=== PATIENT | male | born 1980 | race African-American/Black ===

== ENCOUNTER 2020-02-05 19:37 | Emergency (ER) | payer SELFPAY ==
[2020-02-05 20:42] LABS: Absolute Lymphocytes (CBC) 2.9 K/uL (0.7-4.9); Basophils % 1.2 % (0-1.3); Hematocrit 48.7 % (39.6-49.0); Lymphocytes % 36.2 % (15.3-44.8); RBC Red Blood Cell Count 5.81 M/uL (4.33-5.43)
[2020-02-05 21:01] LABS: ALT/SGPT 55 U/L (12-78); AST/SGOT 30 U/L (15-37); Albumin 3.8 g/dL (3.4-5.0); Alkaline Phosphatase 82 U/L (45-117); BUN Blood Urea Nitrogen 13 mg/dL (7-18); Bicarbonate 29 mmol/L (21-32); Bilirubin Direct < 0.1 mg/dL (0-0.2); Bilirubin Total 0.3 mg/dL (0.2-1.0); Glucose Level 89 mg/dL (74-106); Lipase 79 U/L (73-393); Potassium 4.2 mmol/L (3.5-5.1); Sodium Level 142 mmol/L (136-145)
--- NOTE | 2020-02-05 23:02 | ER ---
Nurse's Notes [facility] Name: Carlos Johnston Age: 39 yrs Sex: Male : 1980 Arrival Date: 02/05/2020 Time: 19:39 Bed 17 Private MD: Diagnosis: Hematochezia Presentation: 02/04 20:38 Chief complaint: Patient states: Pt reports he has been having rectal bleeding on and ea off for a week, tonight he noticed there was more blood in his stool. Coronavirus screen: The patient has NOT traveled to a country currently being monitored by the [facility] within the last 14 days. Ebola Screen: No symptoms or risks identified at this time. Initial Sepsis Screen: Does the patient meet any 2 criteria? No. Patient's initial sepsis screen is negative. Does the patient have a suspected source of infection? No. Patient's initial sepsis screen is negative. Risk Assessment: Do you want to hurt yourself or someone else? Patient reports no desire to harm self or others. 20:38 Acuity: RHONDA 3 ea 20:38 Method Of Arrival: Ambulatory ea Historical: - Allergies: 20:41 No Known Allergies; ea - Home Meds: 20:41 None [Active]; ea - Immunization history:: Adult Immunizations up to date. - Social history:: Smoking status: Patient denies any tobacco usage or history of. Screenin:37 Abuse screen: Denies threats or abuse. Nutritional screening: No deficits noted. ea Tuberculosis screening: No symptoms or risk factors identified. Fall Risk None identified. Assessment: 20:41 General: Appears in no apparent distress. Behavior is calm, cooperative, appropriate ea for age. Pain: Denies pain. Neuro: Level of Consciousness is awake, alert, obeys commands, Oriented to person, place, time, situation. Respiratory: Airway is patent Respiratory effort is even, unlabored, Respiratory pattern is regular, symmetrical. GI: Abdomen is non-distended. Derm: Skin is pink, warm \T\ dry. 21:00 Reassessment: Patient and/or family updated on plan of care and expected duration. Pain ea level reassessed. Patient is alert, oriented x 3, equal unlabored respirations, skin warm/dry/pink. 22:17 Reassessment: Patient and/or family updated on plan of care and expected duration. Pain ea level reassessed. Patient is alert, oriented x 3, equal unlabored respirations, skin warm/dry/pink. 23:17 Reassessment: Patient and/or family updated on plan of care and expected duration. Pain ea level reassessed. Patient is alert, oriented x 3, equal unlabored respirations, skin warm/dry/pink. Discharge instruction given to patient, verbalized the understanding of instruction. Pt left ED ambulatory accompanied by family. Vital Signs: 19:55 BP 144 / 98 LA Sitting (auto/reg); Pulse 70; Resp 18 S; Temp 98.0; Pulse Ox 100% on R/A;mb4 20:38 Weight 86.18 kg; Height 5 ft. 5 in. (165.10 cm); ea 21:32 BP 137 / 94 LA Sitting (auto/reg); Pulse 72; mb4 20:38 Body Mass Index 31.62 (86.18 kg, 165.10 cm) ea ED Course: 19:39 Patient arrived in ED. cl3 19:52 Lenin Diop NP is PHCP. pm1 19:52 Devin Fuentes MD is Attending Physician. pm1 19:55 Safety checks:. Patient has correct armband on for positive identification. Bed in low mb4 position. Call light in reach. Pulse ox on. NIBP on. 20:15 Peg Cochran, RN is Primary Nurse. ea 20:39 Triage completed. ea 20:39 Arm band placed on right wrist. Patient placed in an exam room, on a stretcher, on ea pulse oximetry. 20:55 Radiology exam delayed due to lab results not completed at this time. (BUN/Creatinine). bq 22:06 CT Abd/Pelvis - IV Contrast Only In Process Unspecified. EDMS 22:08 IV is patent, with good blood return, Flushed. 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 mb4 23:01 Elvin Cunha MD is Referral Physician. pm1 23:20 IV discontinued, intact, bleeding controlled, No redness/swelling at site. Pressure ea dressing applied. Administered Medications: No medications were administered Outcome: 23:01 Discharge ordered by . pm1 23:19 Discharged to home ambulatory. ea 23:19 Condition: stable 23:19 Discharge instructions given to patient, Instructed on discharge instructions, follow up and referral plans. Demonstrated understanding of instructions, follow-up care. 23:22 Patient left the ED. ea Signatures: Dispatcher [employer] EDCorie Malloy Patrick, NP CHECKER LOADER pm1 Peg Cochran RN RN Juliann Meredith mb4 Maria A Junior cl3
--- NOTE | 2020-02-05 23:02 | EDPHYS ---
Physician Documentation [facility] Name: Carlos Johnston Age: 39 yrs Sex: Male : 1980 Arrival Date: 02/05/2020 Time: 19:39 Bed 17 Private MD: ED Physician Devin Fuentes HPI: 02/04 21:05 This 39 yrs old Black Male presents to ER via Ambulatory with complaints of Bloody pm1 Stools. 21:05 The patient presents to the emergency department with rectal bleeding, a small amount, pm1 bright red blood with bowel movement, on toilet paper. Onset: The symptoms/episode began/occurred 1 week(s) ago, on and off. Abdominal pain: none is appreciated. Modifying factors: The symptoms are alleviated by nothing, the symptoms are aggravated by bowel movement. Associated signs and symptoms: Pertinent negatives: chest pain, constipation, diarrhea, dizziness at rest, dizziness when standing, shortness of breath, vomiting. Severity of symptoms: in the emergency department the symptoms are worse Pain is currently a 0 / 10. The patient has not experienced similar symptoms in the past. Historical: - Allergies: 20:41 No Known Allergies; ea - Home Meds: 20:41 None [Active]; ea - Immunization history:: Adult Immunizations up to date. - Social history:: Smoking status: Patient denies any tobacco usage or history of. ROS: 21:05 Constitutional: Negative for fever, chills, and weight loss, Cardiovascular: Negative pm1 for chest pain, palpitations, and edema, Respiratory: Negative for shortness of breath, cough, wheezing, and pleuritic chest pain. 21:05 Back: Negative for injury and pain, MS/Extremity: Negative for injury and deformity, Skin: Negative for injury, rash, and discoloration, Neuro: Negative for headache, weakness, numbness, tingling, and seizure. 21:05 Abdomen/GI: Positive for rectal bleeding, Negative for abdominal pain, diarrhea, constipation. Exam: 21:05 Constitutional: This is a well developed, well nourished patient who is awake, alert, pm1 and in no acute distress. Head/Face: Normocephalic, atraumatic. Chest/axilla: Normal chest wall appearance and motion. Nontender with no deformity. No lesions are appreciated. Cardiovascular: Regular rate and rhythm with a normal S1 and S2. No gallops, murmurs, or rubs. Normal PMI, no JVD. No pulse deficits. Respiratory: Lungs have equal breath sounds bilaterally, clear to auscultation and percussion. No rales, rhonchi or wheezes noted. No increased work of breathing, no retractions or nasal flaring. Abdomen/GI: Soft, non-tender, with normal bowel sounds. No distension or tympany. No guarding or rebound. No evidence of tenderness throughout. Back: No spinal tenderness. No costovertebral tenderness. Full range of motion. Skin: Warm, dry with normal turgor. Normal color with no rashes, no lesions, and no evidence of cellulitis. MS/ Extremity: Pulses equal, no cyanosis. Neurovascular intact. Full, normal range of motion. 21:05 Neuro: Orientation: is normal, Motor: is normal, moves all fours. 22:55 Abdomen/GI: Inspection: abdomen appears normal, Bowel sounds: normal, Rectal exam: is pm1 unremarkable, rectal tone normal, Stool: brown, guaiac positive, trace, mass, is not appreciated, swelling, is not appreciated, [facility] tech. Vital Signs: 19:55 BP 144 / 98 LA Sitting (auto/reg); Pulse 70; Resp 18 S; Temp 98.0; Pulse Ox 100% on R/A;mb4 20:38 Weight 86.18 kg; Height 5 ft. 5 in. (165.10 cm); ea 21:32 BP 137 / 94 LA Sitting (auto/reg); Pulse 72; mb4 20:38 Body Mass Index 31.62 (86.18 kg, 165.10 cm) ea MDM: 20:01 Patient medically screened. pm1 22:55 Data reviewed: vital signs. Data interpreted: Pulse oximetry: on room air is 100 %. pm1 Interpretation: normal. Counseling: I had a detailed discussion with the patient and/or guardian regarding: the historical points, exam findings, and any diagnostic results supporting the discharge/admit diagnosis, lab results, radiology results, the need for outpatient follow up, to return to the emergency department if symptoms worsen or persist or if there are any questions or concerns that arise at home. 23:02 ED course: Discussed need for follow up with GI and colonscopy. pm1 02/04 20:09 Order name: Basic Metabolic Panel; Complete Time: 21:05 pm1 02/04 20:09 Order name: CBC with Diff; Complete Time: 20:52 pm1 02/04 20:09 Order name: Creatinine for Radiology; Complete Time: 21:05 pm1 02/04 20:09 Order name: Hepatic Function; Complete Time: 21:05 pm1 02/04 20:09 Order name: Lipase; Complete Time: 21:05 pm1 02/04 20:09 Order name: CT Abd/Pelvis - IV Contrast Only pm1 02/04 20:09 Order name: IV Saline Lock; Complete Time: 20:43 pm1 02/04 20:09 Order name: Labs collected and sent; Complete Time: 20:43 pm1 Administered Medications: No medications were administered Disposition: 02/05 04:27 Co-signature as Attending Physician, Devin Fuentes MD I agree with the assessment and tw4 plan of care. Disposition: 02/05/20 23:01 Discharged to Home. Impression: Hematochezia. - Condition is Stable. - Discharge Instructions: Rectal Bleeding. - Medication Reconciliation Form, Thank You Letter, Antibiotic Education, Prescription Opioid Use, Work release form, Family Work Release form. - Follow up: Emergency Department; When: As needed; Reason: Worsening of condition. Follow up: Private Physician; When: 2 - 3 days; Reason: Recheck today's complaints, Continuance of care, Re-evaluation by your physician. Follow up: Elvin Cunha MD; When: 2 - 3 days; Reason: Recheck today's complaints, Continuance of care, Re-evaluation by your physician. - Problem is new. - Symptoms have improved. Signatures: Dispatcher [employer] EDMS Lenin Diop, STEPHEN PROCTOLOGIST pm1 Peg Cochran, Devin Gan RN, ea, MD MD tw4 Corrections: (The following items were deleted from the chart) 02/04 23:01 23:02/05/2020 23:01 Discharged to Home. Impression: Hematochezia. Condition is pm1 Stable. Forms are Medication Reconciliation Form, Thank You Letter, Antibiotic Education, Prescription Opioid Use. Follow up: Emergency Department; When: As needed; Reason: Worsening of condition. Follow up: Private Physician; When: 2 - 3 days; Reason: Recheck today's complaints, Continuance of care, Re-evaluation by your physician. Problem is new. Symptoms have improved. pm1 23:22 23:01 02/05/2020 23:01 Discharged to Home. Impression: Hematochezia. Condition is ea Stable. Discharge Instructions: Rectal Bleeding. Forms are Medication Reconciliation Form, Thank You Letter, Antibiotic Education, Prescription Opioid Use. Follow up: Emergency Department; When: As needed; Reason: Worsening of condition. Follow up: Private Physician; When: 2 - 3 days; Reason: Recheck today's complaints, Continuance of care, Re-evaluation by your physician. Follow up: Elvin Cunha; When: 2 - 3 days; Reason: Recheck today's complaints, Continuance of care, Re-evaluation by your physician. Problem is new. Symptoms have improved. pm1
[2020-02-05 23:39] VITALS: TEMP 98; O2SAT 100
[2020-02-05 23:40] VITALS: BP 137/94
--- NOTE | 2020-02-06 09:53 | RAD REPORT ---
CT ABDOMEN PELVIS WITH IV CONTRAST COMPARISON: None CLINICAL HISTORY: GI bleed TECHNIQUE: Multiple helical axial images were obtained through the abdomen and pelvis using intravenous contrast. Coronal and sagittal reformatted images were obtained. All CT scans at this facility use dose modulation, iterative reconstruction, and/or weight-based dosing when appropriate to reduce radiation dose to as low as reasonably achievable. FINDINGS: Lung bases: [Appear unremarkable]. Liver: [A 9 mm hypodensity in the right hepatic lobe is present too small to characterize.] Gallbladder/biliary: [Appears unremarkable] Pancreas: [Unremarkable. No evidence of ductal enlargement.] Spleen: Appears unremarkable. No splenomegaly. Adrenals: Unremarkable. Kidneys and ureters: [No evidence of hydronephrosis. Normal enhancement.] Bladder: Unremarkable. Pelvic organs: Unremarkable. Bowel: [No evidence of bowel obstruction. No bowel wall thickening.] Appendix appears unremarkable. Vasculature: Unremarkable. Peritoneum: No free air. No significant free fluid. Lymph nodes: Unremarkable. Soft tissues: Unremarkable. Bones: Unremarkable. IMPRESSION: No evidence for an acute process within the abdomen or pelvis. Electronically signed by: Hermelindo Sanchez MD 02/05/2020 10:25 PM CDT Due to temporary technical issues with the PAC/Fluency reporting system, reports are being signed by the in house radiologist as a courtesy to ensure prompt reporting. The interpreting radiologist is fully responsible for the content of the report. RAE
== END 2020-02-05 23:22 | disposition home or self-care (01) ==
LOC: ER 19:37
DX: K92.1 Melena (principal)
CPT/HCPCS: 36415; 74177; 80048; 80076; 83690; 85025; 99283; Q9967

== ENCOUNTER 2020-03-17 08:09 | Emergency (ER) | payer SELFPAY ==
--- NOTE | 2020-03-17 08:23 | ER ---
Nurse's Notes [facility] Name: Carlos Johnston Age: 39 yrs Sex: Male : 1980 Arrival Date: 03/17/2020 Time: 08:11 Bed 5 Private MD: Diagnosis: Cough Presentation: 03/17 08:18 Chief complaint: Productive cough with clear sputum x 2 months. Denies pain/SOB/N/V/D. hb Coronavirus screen: Patient reports a cough. Patient denies shortness of breath or difficulty breathing. Patient denies measured and/or subjective temperature greater than 100.4F prior to today's visit. Patient denies travel on a cruise ship or to a country the [facility] currently lists as an affected area. Patient denies contact with known and/or suspected case of COVID-19. mask on pt, pot instructed to keep mask on. Ebola Screen: No symptoms or risks identified at this time. Initial Sepsis Screen: Does the patient meet any 2 criteria? No. Patient's initial sepsis screen is negative. Does the patient have a suspected source of infection? No. Patient's initial sepsis screen is negative. Risk Assessment: Do you want to hurt yourself or someone else? Patient reports no desire to harm self or others. Onset of symptoms was March 17, 2020. 08:18 Method Of Arrival: Ambulatory hb 08:18 Acuity: RHONDA 4 hb Historical: - Allergies: 08:22 No Known Allergies; hb - Home Meds: 08:22 None [Active]; hb - PMHx: 08:22 None; hb - PSHx: 08:22 None; hb - Immunization history:: Adult Immunizations up to date. - Social history:: Smoking status: Patient/guardian denies using tobacco, Stopped _ months ago 6. Screenin:27 Abuse screen: Denies threats or abuse. Nutritional screening: No deficits noted. em Tuberculosis screening: No symptoms or risk factors identified. Fall Risk None identified. Assessment: 08:28 General: Appears in no apparent distress. comfortable, Behavior is calm, cooperative, em appropriate for age, Denies fever. Pain: Denies pain. Neuro: Level of Consciousness is awake, alert, obeys commands, Oriented to person, place, time, situation, Appropriate for age. Cardiovascular: Capillary refill < 3 seconds Patient's skin is warm and dry. Respiratory: Reports cough that is productive, Airway is patent Respiratory effort is even, unlabored, Respiratory pattern is regular, symmetrical, Breath sounds are clear bilaterally. Onset: The symptoms/episode began/occurred 2 months ago, Denies shortness of breath labored breathing. Derm: Skin is intact, is healthy with good turgor, Skin is pink, warm \T\ dry. Musculoskeletal: Capillary refill < 3 seconds, Range of motion: intact in all extremities. Vital Signs: 08:18 BP 125 / 87; Pulse 78; Resp 16; Temp 98.4(O); Pulse Ox 100% ; Weight 87.09 kg; Height 5 hb ft. 10 in. (177.80 cm); Pain 0/10; 08:18 Body Mass Index 27.55 (87.09 kg, 177.80 cm) hb ED Course: 08:11 Patient arrived in ED. am2 08:12 Ortiz Saldaña FNP-C is [facility]. la1 08:12 Jose Maria Rodríguez MD is Attending Physician. la1 08:19 Gt [place], RN is Primary Nurse. em 08:21 Triage completed. hb 08:22 Arm band placed on. hb 08:27 Patient has correct armband on for positive identification. Bed in low position. Call em light in reach. 08:27 No provider procedures requiring assistance completed. Patient did not have IV access em during this emergency room visit. Administered Medications: No medications were administered Outcome: 08:23 Discharge ordered by . la1 08:29 Discharged to home ambulatory. em 08:29 Condition: good 08:29 Discharge instructions given to patient, Instructed on discharge instructions, follow up and referral plans. medication usage, Demonstrated understanding of instructions, follow-up care, medications, Prescriptions given X 1. 08:30 Patient left the ED. em Signatures: Gt [place], RN JEN Ortiz Saldaña FNP-C FNP-[facility]1 Ines Man RN RN Jeana Conway am2
--- NOTE | 2020-03-17 08:24 | EDPHYS ---
Physician Documentation [facility] Name: Carlos Johnston Age: 39 yrs Sex: Male : 1980 Arrival Date: 03/17/2020 Time: 08:11 Bed 5 Private MD: ED Physician Jose Maria Rodríguez HPI: 03/17 08:24 This 39 yrs old Black Male presents to ER via Ambulatory with complaints of Cough. la1 08:24 The patient or guardian reports cough, that is intermittent, described as mild. Onset: la1 The symptoms/episode began/occurred 2 month(s) ago. Severity of symptoms: At their worst the symptoms were very mild. Associated signs and symptoms: The patient has no apparent associated signs or symptoms, Pertinent negatives: chest pain, diarrhea, fever, nausea, sore throat, vomiting. The patient has not experienced similar symptoms in the past. Historical: - Allergies: 08:22 No Known Allergies; hb - Home Meds: 08:22 None [Active]; hb - PMHx: 08:22 None; hb - PSHx: 08:22 None; hb - Immunization history:: Adult Immunizations up to date. - Social history:: Smoking status: Patient/guardian denies using tobacco, Stopped _ months ago 6. ROS: 08:25 Constitutional: Negative for fever, chills, and weight loss, Cardiovascular: Negative la1 for chest pain, palpitations, and edema, Respiratory: + for cough 08:25 Abdomen/GI: Negative for abdominal pain, nausea, vomiting, diarrhea, and constipation, la1 Back: Negative for injury and pain, MS/Extremity: Negative for injury and deformity, Neuro: Negative for headache, weakness, numbness, tingling, and seizure. Exam: 08:26 Constitutional: This is a well developed, well nourished patient who is awake, alert, la1 and in no acute distress. Head/Face: Normocephalic, atraumatic. Chest/axilla: Normal chest wall motion. Cardiovascular: Regular rate and rhythm with a normal S1 and S2. Respiratory: Lungs have equal breath sounds bilaterally, clear to auscultation No rales, rhonchi or wheezes noted. No increased work of breathing Vital Signs: 08:18 BP 125 / 87; Pulse 78; Resp 16; Temp 98.4(O); Pulse Ox 100% ; Weight 87.09 kg; Height 5 hb ft. 10 in. (177.80 cm); Pain 0/10; 08:18 Body Mass Index 27.55 (87.09 kg, 177.80 cm) hb MDM: 08:14 Patient medically screened. la1 08:21 Data reviewed: vital signs, nurses notes, and as a result, I will discharge patient. la1 Data interpreted: Pulse oximetry: on room air is 100 %. Interpretation: normal. Counseling: I had a detailed discussion with the patient and/or guardian regarding: the historical points, exam findings, and any diagnostic results supporting the discharge/admit diagnosis, the need for outpatient follow up, a family practitioner, to return to the emergency department if symptoms worsen or persist or if there are any questions or concerns that arise at home. Special discussion: Further emergent ED testing is not indicated at this point in time. I discussed with the patient/guardian in detail the need to arrange with the PCP or specialist further outpatient testing, IF HE WISHES TO BE SCREENED FOR covid. ED course: pt in no resp distress, denies subjective SOB, productive cough with clear sputum for 2 months, denies fever chills or any other sx. 02 sats 100%, breath sounds CTA BARON. Administered Medications: No medications were administered Disposition: 03/17/20 08:23 Discharged to Home. Impression: Cough. - Condition is Stable. - Discharge Instructions: Allergies, Adult, Cough, Adult. - Prescriptions for Tessalon Perles 100 mg Oral Capsule - take 1 capsule by ORAL route every 8 hours As needed; 15 capsule. - Medication Reconciliation Form, Thank You Letter form. - Follow up: Private Physician; When: As needed; Reason: Recheck today's complaints, Re-evaluation by your physician. - Problem is an ongoing problem. - Symptoms are unchanged. - Notes: You can try an over the counter medication such as cristian or zyrtec for allergy control daily. Addendum: 03/19/2020 09:52 Co-signature as Attending Physician, Jose Maria Rodríguez MD I agree with the assessment and c zeng plan of care. Signatures: Jose Maria Rodríguez MD MD cha Munoz, Edgar, RN RN Ortiz Huizar, INTERVENTIONAL RADIOLOGIST-C INTERVENTIONAL RADIOLOGIST-Cla1 Ines Man RN RN Corrections: (The following items were deleted from the chart) 03/17 08:30 08:23 03/17/2020 08:23 Discharged to Home. Impression: Cough. Condition is Stable. em Forms are Medication Reconciliation Form, Thank You Letter, Antibiotic Education, Prescription Opioid Use. Follow up: Private Physician; When: As needed; Reason: Recheck today's complaints, Re-evaluation by your physician. Problem is an ongoing problem. Symptoms are unchanged. la1
[2020-03-17 08:35] VITALS: BP 125/87; TEMP 98.4; O2SAT 100
== END 2020-03-17 08:30 | disposition home or self-care (01) ==
LOC: ER 08:09
DX: R05 Cough (principal)
CPT/HCPCS: 99282

== ENCOUNTER 2020-06-03 15:59 | Inpatient (IN) | payer SELFPAY ==
[2020-06-03] MEDS ORDERED: FAMOTIDINE 20 MG/2 ML VIAL IV ONE ×2 (18:38→22:49)
--- NOTE | 2020-06-03 18:44 | RAD REPORT ---
EXAM DESCRIPTION: Sherif Single View06/03/2020 6:14 pm CLINICAL HISTORY: Chest pain COMPARISON: none FINDINGS: Calcified granuloma right lung. The lungs appear clear of acute infiltrate. The heart is normal size IMPRESSION: No acute abnormalities displayed
[2020-06-03 21:31] LABS: Absolute Lymphocytes (CBC) 2.4 K/uL (0.7-4.9); Hematocrit 54.6 % (39.6-49.0); Lymphocytes % 26.6 % (15.3-44.8); MPV 8.3 fL (7.6-11.3); RBC Red Blood Cell Count 6.49 M/uL (4.33-5.43)
[2020-06-03] MEDS ORDERED: ASPIRIN 81 MG CHEWABLE TABLET ONE (21:31)
[2020-06-03 21:34] LABS: Protime INR 1.04
[2020-06-03 21:51] LABS: Albumin 4.3 g/dL (3.4-5.0); Bilirubin Direct 0.1 mg/dL (0-0.2); Bilirubin Total 0.5 mg/dL (0.2-1.0); Magnesium 2.2 mg/dL (1.8-2.4); Potassium 3.7 mmol/L (3.5-5.1)
[2020-06-03 21:53] LABS: Troponin (Emerg Dept Use Only) 1.25 ng/mL (0.0-0.045)
--- NOTE | 2020-06-03 22:16 | ER ---
Nurse[facility] Name: Carlos Johnston Age: 39 yrs Sex: Male : 1980 Arrival Date: 06/03/2020 Time: 16:01 Bed 18 Private MD: Diagnosis: Non-ST elevation (NSTEMI) myocardial infarction Presentation: 06/03 16:40 Chief complaint: Patient states: Acid reflux started yesterday evening. Burning ca1 sensation on my chest, took some Tums with no relief. Denies cough. Coronavirus screen: Proceed with normal triage. Patient denies a cough. Patient denies shortness of breath or difficulty breathing. Patient denies measured and/or subjective temperature greater than 100.4F prior to today's visit. Patient denies travel on a cruise ship or to a country the [facility] currently lists as an affected area. Patient denies contact with known and/or suspected case of COVID-19. Ebola Screen: Patient negative for fever greater than or equal to 101.5 degrees Fahrenheit, and additional compatible Ebola Virus Disease symptoms Patient denies exposure to infectious person. Patient denies travel to an Ebola-affected area in the 21 days before illness onset. No symptoms or risks identified at this time. Initial Sepsis Screen: Does the patient meet any 2 criteria? No. Patient's initial sepsis screen is negative. Does the patient have a suspected source of infection? No. Patient's initial sepsis screen is negative. Risk Assessment: Do you want to hurt yourself or someone else? Patient reports no desire to harm self or others. Onset of symptoms was June 03, 2020. 16:40 Method Of Arrival: Ambulatory ca1 16:40 Acuity: RHONDA 3 ca1 Triage Assessment: 18:00 Headache History: The patient has had previous headaches and this one is similar to rb1 previous episodes. 18:00 Pain: Pain began last night. rb1 Historical: - Allergies: 16:43 No Known Allergies; ca1 - Home Meds: 16:43 None [Active]; ca1 - PMHx: 16:43 None; ca1 - PSHx: 16:43 None; ca1 - Immunization history:: Adult Immunizations up to date. - Social history:: Smoking status: Patient denies any tobacco usage or history of. Screenin:00 Abuse screen: Denies threats or abuse. Nutritional screening: No deficits noted. rb1 Tuberculosis screening: No symptoms or risk factors identified. Fall Risk None identified. Assessment: 18:00 General: Appears in no apparent distress. comfortable, Behavior is calm, cooperative, rb1 Denies fever. Pain: Complains of pain in mid-sternal area Pain currently is 7 out of 10 on a pain scale. Quality of pain is described as burning. Pain: Aggravated by eating. Neuro: Level of Consciousness is awake, alert, obeys commands, Oriented to person, place, time, situation. Cardiovascular: Capillary refill < 3 seconds. Respiratory: Airway is patent Respiratory effort is even, unlabored, Respiratory pattern is regular, symmetrical. Respiratory: Denies cough, shortness of breath. GI: No signs and/or symptoms were reported involving the gastrointestinal system. : No signs and/or symptoms were reported regarding the genitourinary system. Derm: Skin is dry, Skin is normal, Skin temperature is warm. 20:00 Reassessment: Pt refused lab redraw. ea 20:11 General: Appears in no apparent distress. Behavior is calm, cooperative, appropriate ea for age. Pain: Complains of pain in mid-sternal area. Neuro: Level of Consciousness is awake, alert, obeys commands, Oriented to person, place, time, situation. Cardiovascular: Patient's skin is warm and dry. Respiratory: Airway is patent Respiratory effort is even, unlabored, Respiratory pattern is regular, symmetrical. Derm: Skin is dry, Skin is normal, Skin temperature is warm. 21:34 Reassessment: Patient and/or family updated on plan of care and expected duration. Pain ea level reassessed. Patient is alert, oriented x 3, equal unlabored respirations, skin warm/dry/pink. 22:30 Reassessment: Patient and/or family updated on plan of care and expected duration. Pain ea level reassessed. Patient is alert, oriented x 3, equal unlabored respirations, skin warm/dry/pink. 23:30 Reassessment: Patient and/or family updated on plan of care and expected duration. Pain ea level reassessed. Patient is alert, oriented x 3, equal unlabored respirations, skin warm/dry/pink. 06/04 00:00 Reassessment: Patient and/or family updated on plan of care and expected duration. Pain ea level reassessed. Patient is alert, oriented x 3, equal unlabored respirations, skin warm/dry/pink. 01:29 Reassessment: Patient and/or family updated on plan of care and expected duration. Pain ea level reassessed. Pt resting with eyes closed, respiration even and symmetrical, chest expansions even and unlabored. 01:56 Reassessment: Patient and/or family updated on plan of care and expected duration. Pain ea level reassessed. Patient is alert, oriented x 3, equal unlabored respirations, skin warm/dry/pink. Pt admitted to ICU, left ED via wheelchair, per ED nurse. Pt tolerating well. Vital Signs: 06/03 16:40 BP 145 / 103; Pulse 73; Resp 15 S; Temp 98.4(TE); Pulse Ox 95% on R/A; Weight 92.99 kg ca1 (R); Height 5 ft. 9 in. (175.26 cm) (R); Pain 8/10; 19:26 BP 150 / 104; Pulse 70; Resp 16; Pulse Ox 97% ; ea 20:28 BP 153 / 103; Pulse 68; Resp 16; Pulse Ox 99% on R/A; ea 23:30 BP 113 / 98; Pulse 72; Resp 17; Temp 98.0; Pulse Ox 99% ; ea 06/04 00:30 BP 150 / 108; Pulse 89; Resp 18; Pulse Ox 98% ; ea 01:31 BP 152 / 99; Pulse 76; Resp 18; Pulse Ox 76% ; ea 06/03 16:40 Body Mass Index 30.27 (92.99 kg, 175.26 cm) ca1 ED Course: 06/03 16:01 Patient arrived in ED. ag5 16:43 Triage completed. ca1 16:43 Arm band placed on right wrist. ca1 16:45 Missed attempt(s): 22 gauge in left antecubital area. ls4 16:50 Inserted saline lock: 24 gauge in right forearm, using aseptic technique. two attempts ls4 by pct Scott to insert IV. Pt moves upon insertion. pt is now refusing to allow access and is asking to leave. spoke to pt exctensively regarding risks of leaving AMA including . pt continues to refuse to allow anyone to collect blood. 17:20 Missed attempt(s): 22 gauge in left antecubital area. pt continues to pull each time ls4 attempt is made to gain access IV. asked pt to try not to move and he states he is going to move. again pt moved and I obtained a flash and blood return but lost access do to excessive movement by patient. . 17:40 Missed attempt(s): 24 gauge in left antecubital area. Pt still is not cooperating and ls4 states he is going to move. I explained to pt that it is very possible that we will find that he is having an heart attack in the blood work, i explained that if he moves he will again delay his treatment. pt still states in a very sarcastic manner that he is going to move. i placed pt hand between by knees and again attempted access. i was able to get enough blood to send to lab, but the access was lost due to his pulling. I asked him why he was pulling away because if he does that we cannot get access and help him. labs sent and Doctor informed of pt incooperation leadiing to delay in care. . 17:54 Lenin Diop NP is PHCP. pm1 17:54 Remi Arguello MD is Attending Physician. pm1 18:00 Patient has correct armband on for positive identification. Bed in low position. Call rb1 light in reach. Side rails up X 1. hall monitor on. Pulse ox on. NIBP on. Warm blanket given. 18:05 Samira Schwartz, RN is Primary Nurse. rb1 18:14 XRAY Chest (1 view) In Process Unspecified. EDMS 21:28 Inserted saline lock: 22 gauge in left antecubital area, using aseptic technique. Blood ea collected. 22:15 Paxton Chacon is Hospitalizing Provider. pm1 06/04 00:37 No provider procedures requiring assistance completed. ls4 01:30 Patient admitted, IV remains in place. ea Administered Medications: 06/03 19:11 Not Given (No IV access): Pepcid 20 mg IVP once rb1 21:26 Drug: Aspirin Chewable Tablet 324 mg Route: PO; ea 06/04 01:34 Follow up: Response: No adverse reaction ea 06/03 22:29 CANCELLED (Physician Discretion): Heparin (GA-Bolus with thrombolytic) - HEParin 60 pm1 units/kg IVP once; Max 4000 units 23:21 Not Given (Physician Discretion): Lovenox 1 mg/kg Sub-Q once pm1 23:22 Drug: PlaVIX 300 mg Route: PO; ea 06/04 01:35 Follow up: Response: No adverse reaction ea 06/03 23:28 Drug: Heparin (GA Drip) 12 units/kg/hr - (HEParin 29262 units, D5W 500 ml) ea {Co-Signature: ls4 (Katherin Camarillo RN).} Route: IV; Rate: calculated rate; Site: left antecubital; 06/04 01:35 Follow up: Response: No adverse reaction; IV Status: Infusion continued upon admission ea 06/03 23:28 Drug: Heparin (GA-Bolus No thrombolytic) - HEParin 60 units/kg {Co-Signature: ls4 (Katherin Camarillo RN).} Route: IVP; Site: left antecubital; 06/04 00:00 Follow up: Response: No adverse reaction ea Outcome: 06/03 22:15 Decision to Hospitalize by Provider. pm1 06/04 01:30 Condition: stable ea Instructed on the need for admit. 01:48 Admitted to ICU accompanied by nurse, via wheelchair, room 3, on monitor, with chart, ea Report called to Receiving ICU nurse 01:57 Patient left the ED. ea Signatures: Dispatcher [employer] EDMS Samira Schwartz RN RN rb1 Lenin Diop, STEPHEN TRANSPORTATION ENGINEERING TECHNICIAN pm1 Peg Cochran RN RN ea Stewart, Lisa, RN RN ls4 Lizabeth Griffin RN RN ca1 Gaskin, Ajare ag5 Katherin Camarillo RN ls4 Corrections: (The following items were deleted from the chart) 06/03 21:34 21:33 Reassessment: Patient and/or family updated on plan of care and expected ea duration. Pain level reassessed. Patient is alert, oriented x 3, equal unlabored respirations, skin warm/dry/pink. ea 06/04 00:37 00:32 Missed attempt(s): 24 gauge in left antecubital area. Pt still is not cooperating ls4 and states he is going to move. I explained to pt that it is very possible that we will find that he is having an heart attack in the blood work, i explained that if he moves he will again delay his treatment. pt still states in a very sarcastic manner that he is going to move. i placed pt hand between by knees and again attempted access. i was able to get enough blood to send to lab, but the access was lost due to his pulling. I asked him why he was pulling away because if he does that we cannot get access and help him. labs sent and Doctor informed of pt incooperation leadiing to delay in care. . ls4
--- NOTE | 2020-06-03 22:16 | EDPHYS ---
Physician Documentation [facility] Name: Carlos Johnston Age: 39 yrs Sex: Male : 1980 Arrival Date: 06/03/2020 Time: 16:01 Bed 18 Private MD: ED Physician Remi Arguello HPI: 06/03 18:04 This 39 yrs old Black Male presents to ER via Ambulatory with complaints of Chest Pain. pm1 18:04 The patient or guardian reports chest pain that is located primarily in the mid-sternal pm1 area. Onset: 2 week(s) ago. The pain does not radiate. Associated signs and symptoms: Pertinent positives: headache, Pertinent negatives: abdominal pain, cough, nausea, shortness of breath, syncope, vomiting, Diarrhea. Duration: The patient or guardian reports multiple episodes. Modifying factors: The symptoms are alleviated by nothing. the symptoms are aggravated by nothing. The patient has not experienced similar symptoms in the past. The patient has not recently seen a physician. Historical: - Allergies: 16:43 No Known Allergies; ca1 - Home Meds: 16:43 None [Active]; ca1 - PMHx: 16:43 None; ca1 - PSHx: 16:43 None; ca1 - Immunization history:: Adult Immunizations up to date. - Social history:: Smoking status: Patient denies any tobacco usage or history of. ROS: 20:36 Constitutional: Negative for fever, chills, and weight loss, Neck: Negative for injury, pm1 pain, and swelling. 20:36 Respiratory: Negative for shortness of breath, cough, wheezing, and pleuritic chest pain, Abdomen/GI: Negative for abdominal pain, nausea, vomiting, diarrhea, and constipation, Back: Negative for injury and pain, MS/Extremity: Negative for injury and deformity, Skin: Negative for injury, rash, and discoloration, Neuro: Negative for headache, weakness, numbness, tingling, and seizure. 20:36 Cardiovascular: Positive for chest pain, Negative for edema, orthopnea, palpitations. Exam: 20:36 Constitutional: This is a well developed, well nourished patient who is awake, alert, pm1 and in no acute distress. Head/Face: Normocephalic, atraumatic. Chest/axilla: Normal chest wall appearance and motion. Nontender with no deformity. No lesions are appreciated. Cardiovascular: Regular rate and rhythm with a normal S1 and S2. No gallops, murmurs, or rubs. Normal PMI, no JVD. No pulse deficits. Respiratory: Lungs have equal breath sounds bilaterally, clear to auscultation and percussion. No rales, rhonchi or wheezes noted. No increased work of breathing, no retractions or nasal flaring. Abdomen/GI: Soft, non-tender, with normal bowel sounds. No distension or tympany. No guarding or rebound. No evidence of tenderness throughout. Back: No spinal tenderness. No costovertebral tenderness. Full range of motion. Skin: Warm, dry with normal turgor. Normal color with no rashes, no lesions, and no evidence of cellulitis. MS/ Extremity: Pulses equal, no cyanosis. Neurovascular intact. Full, normal range of motion. 20:36 Neuro: Exam negative for acute changes, Orientation: is normal, Motor: is normal, moves all fours, Sensation: is normal, no obvious gross deficits. Vital Signs: 16:40 BP 145 / 103; Pulse 73; Resp 15 S; Temp 98.4(TE); Pulse Ox 95% on R/A; Weight 92.99 kg ca1 (R); Height 5 ft. 9 in. (175.26 cm) (R); Pain 8/10; 19:26 BP 150 / 104; Pulse 70; Resp 16; Pulse Ox 97% ; ea 20:28 BP 153 / 103; Pulse 68; Resp 16; Pulse Ox 99% on R/A; ea 23:30 BP 113 / 98; Pulse 72; Resp 17; Temp 98.0; Pulse Ox 99% ; ea 06/04 00:30 BP 150 / 108; Pulse 89; Resp 18; Pulse Ox 98% ; ea 01:31 BP 152 / 99; Pulse 76; Resp 18; Pulse Ox 76% ; ea 06/03 16:40 Body Mass Index 30.27 (92.99 kg, 175.26 cm) ca1 MDM: 06/03 18:03 Patient medically screened. pm1 20:40 ED course: Patient was not cooperating with lab draw from the nurses and tech multiple pm1 times. Lab reported that all blood sent to them were hemolyzed. This blood sample was likely hemolyzed because Katherin held his hand in place between her knees as the patient was flexing and withdrawing his arm. Requested they run some of the labs and they agreed to run the troponin. Unfortunately the patient delayed care with lab draws due to constantly moving arm when labs drawn and refusal. Due to elevated troponin in hemolyzed sample would like additional blood work and IV saline lock. 20:54 ED course: Discussed with patient the importance to get blood work and the need for IV pm1 since I want to admit based on troponin lab result alone. Patient is not currently complaining of pain. 0/10. Patient's chest pain ongoing for 2 week and the past 2 days. Typically reflux medications work and they have not been working. 22:12 Data reviewed: vital signs. Data interpreted: Pulse oximetry: on room air is 99 %. pm1 Interpretation: normal. 22:12 Counseling: I had a detailed discussion with the patient and/or guardian regarding: the pm1 historical points, exam findings, and any diagnostic results supporting the discharge/admit diagnosis, lab results, radiology results, the need for further work-up and treatment in the hospital. 22:35 Physician consultation: Greg Rojas MD was called at 22:25, was contacted at 22:25, pm1 regarding admission, patient's condition, and will see patient tomorrow, Will cath the patient tomorrow. Heparin drip, aspirin 325, plavix 300 and any hyperlipidemia medication. discussed patient plan of care of Dr. Rojas with Dr. Chacon. 06/03 18:04 Order name: Basic Metabolic Panel; Complete Time: 22:10 pm1 06/03 18:04 Order name: CBC with Diff; Complete Time: 21:48 pm1 06/03 18:04 Order name: LFT's; Complete Time: 22:10 pm1 06/03 18:04 Order name: Magnesium; Complete Time: 22:10 pm1 06/03 18:04 Order name: NT PRO-BNP; Complete Time: 22:10 pm1 06/03 18:04 Order name: PT-INR; Complete Time: 23:36 pm1 06/03 18:04 Order name: XRAY Chest (1 view); Complete Time: 18:58 pm1 06/03 20:12 Order name: Troponin (Emerg Dept Use Only); Complete Time: 20:36 EDMS 06/03 21:41 Order name: Troponin (Emerg Dept Use Only); Complete Time: 22:10 EDMS 06/03 22:33 Order name: Ptt, Activated pm1 06/03 22:33 Order name: UDS pm1 06/03 23:13 Order name: PTT, Activated Partial Thromb; Complete Time: 23:36 EDMS 06/03 16:49 Order name: EKG; Complete Time: 16:50 ca1 06/03 16:49 Order name: EKG - Nurse/Tech; Complete Time: 16:49 ca1 06/03 18:04 Order name: Cardiac monitoring; Complete Time: 21:32 pm1 06/03 18:04 Order name: IV Saline Lock; Complete Time: 21:28 pm1 06/03 18:04 Order name: Labs collected and sent; Complete Time: 19:10 pm1 06/03 18:04 Order name: O2 Per Protocol; Complete Time: 18:06 pm1 06/03 18:04 Order name: O2 Sat Monitoring; Complete Time: 18:06 pm1 06/03 23:26 Order name: NPO; Complete Time: 23:38 pm1 Administered Medications: 19:11 Not Given (No IV access): Pepcid 20 mg IVP once rb1 21:26 Drug: Aspirin Chewable Tablet 324 mg Route: PO; 06/04 01:34 Follow up: Response: No adverse reaction 06/03 22:29 CANCELLED (Physician Discretion): Heparin (AR-Bolus with thrombolytic) - HEParin 60 pm1 units/kg IVP once; Max 4000 units 23:21 Not Given (Physician Discretion): Lovenox 1 mg/kg Sub-Q once pm1 23:22 Drug: PlaVIX 300 mg Route: PO; ea 06/04 01:35 Follow up: Response: No adverse reaction 06/03 23:28 Drug: Heparin (AR Drip) 12 units/kg/hr - (HEParin 91559 units, D5W 500 ml) {Co-Signature: ls4 (Katherin Camarillo RN).} Route: IV; Rate: calculated rate; Site: left antecubital; 06/04 01:35 Follow up: Response: No adverse reaction; IV Status: Infusion continued upon admission 06/03 23:28 Drug: Heparin (AR-Bolus No thrombolytic) - HEParin 60 units/kg {Co-Signature: ls4 (Katherin Camarillo RN).} Route: IVP; Site: left antecubital; 06/04 00:00 Follow up: Response: No adverse reaction ea Disposition: 06/03/20 22:15 Hospitalization ordered by Paxton Chacon for Inpatient Admission. Preliminary diagnosis is Non-ST elevation (NSTEMI) myocardial infarction. - Bed requested for Intensive Care Unit. - Status is Inpatient Admission. ea - Condition is Stable. - Problem is new. - Symptoms have improved. Addendum: 06/06/2020 07:38 Co-signature as Attending Physician, Remi Arguello MD. r n Signatures: Dispatcher [employer] EDUT Remi Arguello MD MD rn Garcia, Birgit, RN RN cg Lenin Diop, GRANULATOR TENDER GRANULATOR TENDER pm1 Peg Cochran RN Lizabeth Jules ea RN Samira Jones RN, RN ls4 Corrections: (The following items were deleted from the chart) 06/03 20:12 18:04 TROPONIN (EMERG DEPT USE ONLY)+C.LAB.BRZ ordered. EDUT EDMS 21:40 21:38 TROPONIN (EMERG DEPT USE ONLY)+C.LAB.BRZ ordered. EDUT EDMS 22:29 22:29 Heparin (AR-Bolus with thrombolytic) - HEParin 60 units/kg IVP once; Max 4000 pm1 units ordered. pm1 22:59 22:15 Hospitalization Ordered by Paxton Chacon for Inpatient Admission. Preliminary pm1 diagnosis is Non-ST elevation (NSTEMI) myocardial infarction. Bed requested for Telemetry/MedSurg (Inpatient). Status is Inpatient Admission. Condition is Stable. Problem is new. Symptoms have improved. pm1 23:12 22:33 PTT, ACTIVATED+COAG.LAB.BRZ ordered. EDUT EDUT 06/04 01:04 07 22:59 06/03/2020 22:15 Hospitalization Ordered by Paxton Chacon for Inpatient cg Admission. Preliminary diagnosis is Non-ST elevation (NSTEMI) myocardial infarction. Bed requested for Intensive Care Unit. Status is Inpatient Admission. Condition is Stable. Problem is new. Symptoms have improved. pm1 06/04 01:57 01:04 06/03/2020 22:15 Hospitalization Ordered by Paxton Chacon for Inpatient ea Admission. Preliminary diagnosis is Non-ST elevation (NSTEMI) myocardial infarction. Bed requested for Intensive Care Unit. Status is Inpatient Admission. Condition is Stable. Problem is new. Symptoms have improved. cg
[2020-06-03] MEDS ORDERED: HEPARIN 5000 UNIT/ML 1 ML VIAL ONE (22:48)
[2020-06-03] MEDS ORDERED: CLOPIDOGREL 75 MG TABLET ONE (22:48)
[2020-06-03] MEDS ORDERED: HEPARIN/D5W 25,000 UNIT/500 ML BAG IV ONE (22:49)
[2020-06-03] MEDS ORDERED: ENOXAPARIN 100 MG/ML SYR SQ ONE (22:49)
--- NOTE | 2020-06-04 00:19 | P.HP ---
Certification for Inpatient Patient admitted to: Inpatient With expected LOS: >2 Midnights Practitioner: I am a practitioner with admitting privileges, knowledge of patient current condition, hospital course, and medical plan of care. Services: Services provided to patient in accordance with Admission requirements found in Title 42 Section 412.3 of the Code of Federal Regulations Patient History Date of Service: 06/04/20 Reason for admission: Chest pain History of Present Illness: 39-year-old man with no known medical history of present to the ED with a complaint of 1 week history of chest pain, maximum security 10/10, nonradiating, worse with meals, no known relieving factors, no associated nausea or diaphoresis or shortness of breath. Patient toward his chest pain was secondary to acid reflux, he tried times without any improvement. He presented to the ED due to persistent nature of the chest pain. Patient's troponin noted to be elevated. EKG does not show any significant ischemic changes. Chest x-ray is unremarkable. Patient is admitted for NSTEMI. - Past Medical/Surgical History -: None -: None - Family History Mother -: Hypertension - Social History Smoking Status: Never smoker Alcohol use: No CD- Drugs: No Place of Residence: Home Review of Systems Other: Except as documented, all other systems reviewed and negative. Physical Examination - Physical Exam General: Alert, In no apparent distress, Oriented x3 HEENT: Mucous membr. moist/pink, Sclerae nonicteric Neck: Supple, JVD not distended Respiratory: Clear to auscultation bilaterally, Normal air movement Cardiovascular: No edema, Regular rate/rhythm, Normal S1 S2 Capillary refill: <2 Seconds Gastrointestinal: Normal bowel sounds, Soft and benign, No tenderness Musculoskeletal: No swelling, No erythema Integumentary: No rashes, No erythema Neurological: Normal strength at 5/5 x4 extr, Cranial nerves 3-12 intact - Studies Laboratory Data (last 24 hrs) 06/03/20 22:33: APTT Cancelled 06/03/20 21:19: PT 12.3, INR 1.04, APTT 35.9 06/03/20 21:19: WBC 9.0, Hgb 17.5, Hct 54.6 H, Plt Count 291 06/03/20 21:19: Sodium 138, Potassium 3.7, BUN 11, Creatinine 1.12, Glucose 85, Magnesium 2.2, Total Bilirubin 0.5, AST 36, ALT 49, Alkaline Phosphatase 65 Assessment and Plan - Problems (Diagnosis) (1) NSTEMI (non-ST elevated myocardial infarction) Current Visit: Yes Status: Acute (2) Accelerated hypertension Current Visit: Yes Status: Acute - Plan Admit to the medical floor. Cardiology was contacted by the ED provide. Cardiology recommend heparin drip. Start metoprolol, loading dose plavix, ASA. Continue to trend troponin Obtain echocardiogram. Morphine p.r.n. for chest pain. Control blood pressure. Hydralazine p.r.n. for BP spikes. Labetalol drip if BP is persistently elevated. - Advance Directives Does patient have a Living Will: No Does patient have a Durable POA for Healthcare: No
[2020-06-04] MEDS ORDERED: HEPARIN/D5W 25,000 UNIT/500 ML BAG IV PRN (01:42)
[2020-06-04] MEDS ORDERED: MORPHINE 4 MG/ML SYR IV PRN (01:42)
[2020-06-04 03:21] LABS: Absolute Lymphocytes (CBC) 3.8 K/uL (0.7-4.9); Basophils % 0.8 % (0-1.3); Lymphocytes % 39.9 % (15.3-44.8); MPV 8.5 fL (7.6-11.3); RBC Red Blood Cell Count 6.03 M/uL (4.33-5.43)
[2020-06-04 03:35] LABS: Protime INR 1.16
[2020-06-04 03:42] VITALS: BMI 29.2
[2020-06-04 04:21] LABS: Troponin I 1.26 ng/mL (0.0-0.045)
[2020-06-04 08:30] LABS: Barbiturates NEGATIVE (NEGATIVE); Benzodiazepines NEGATIVE (NEGATIVE); Cocaine NEGATIVE (NEGATIVE); METHAMPHETAM NEGATIVE (NEGATIVE); Methadone NEGATIVE (NEGATIVE); Opiates NEGATIVE (NEGATIVE); Phencyclidine NEGATIVE (NEGATIVE); THC Cannibis NEGATIVE (NEGATIVE)
[2020-06-04] MEDS ORDERED: HEPA 1000U/500MLS 2,000 UNIT/1,000 ML BAG IV ONE (08:33)
[2020-06-04] MEDS ORDERED: METOPROLOL TAR 50 MG TAB PO SCH (09:00)
[2020-06-04] MEDS ORDERED: ASPIRIN EC 81 MG TAB PO SCH (09:00)
[2020-06-04] MEDS ORDERED: NA CHLORIDE 0.9% 500 ML ONE (09:02)
[2020-06-04] MEDS ORDERED: HEPARIN 5000 UNIT/ML 1 ML VIAL ONE (09:39)
[2020-06-04] MEDS ORDERED: FENTANYL CITR 100 MCG/2 ML ONE (09:39)
[2020-06-04] MEDS ORDERED: MIDAZOLAM HCL 5 MG/5 ML INJ ONE (09:39)
[2020-06-04] MEDS ORDERED: HEPARIN 10,000 UNIT/10 ML VIAL IV ONE (09:39)
[2020-06-04] MEDS ORDERED: NICARDIPINE HCL 25 MG/10 ML IV ONE (09:39)
[2020-06-04] MEDS ORDERED: NITROGLYCERIN 100 MCG/ML SYR (for cath lab use only) IV ONE (09:40)
[2020-06-04] MEDS ORDERED: ATROPINE SULF 1 MG/10 ML SYR IV ONE (09:40)
[2020-06-04 10:33] VITALS: O2SAT 96
[2020-06-04] MEDS ORDERED: NITROGLYCERIN 0.4 MG/TAB SL PRN (11:00)
[2020-06-04] MEDS ORDERED: NA CHLORIDE 0.9% 1,000 ML IV SCH (11:00)
[2020-06-04] MEDS ORDERED: ACETAMINOPHEN 325 MG TABLET PO PRN (11:00)
--- NOTE | 2020-06-04 12:39 | P.DS ---
Admission Date: 06/04/20 Discharge Date: 06/04/20 Primary Care Provider: none Disposition: ROUTINE DISCHARGE Discharge Condition: GOOD Reason for Admission: Chest pain Consultations: Cardiology-Dr. Rojas Procedures: Heart Catheterization: Shows normal coronaries ECHO: Unremarkable CXR: FINDINGS: Calcified granuloma right lung. The lungs appear clear of acute infiltrate. The heart is normal size IMPRESSION: No acute abnormalities displayed Medical Problem List: Chest pain with elevated troponin status post heart catheterization showing normal coronaries Hypertension Brief History of Present Illness: 39-year-old male presented to the emergency room with 1 week history of chest pain. Patient thought this was related to acid reflux. He took over the counter medication without relief. Patient evaluated in the emergency room. Blood pressure elevated. Patient also found to have elevated troponin. Patient admitted for suspected NSTEMI. Hospital Course: Patient presented with chest pain. Patient reports chest pain over the past week. He had taking medication for reflux without success. Patient evaluated the emergency room. Patient found to have elevated troponins suspicious for NSTEMI. The patient also was found to have hypertension. Patient was given medication for blood pressure. Patient seen and evaluated by Cardiology. Cardiology recommended heart catheterization to further evaluate. Heart catheterization performed showed normal coronaries. Echocardiogram obtained. No need for further evaluation. At discharge patient will continue with aspirin 81 mg daily and metoprolol 25 mg 1 pill twice daily for hypertension. May need to hold metoprolol if blood pressure less than 120 systolic or heart rate less than 50. Education on hypertension will be provided. Patient may follow up with cardiology in 1-2 weeks to follow up this hospitalization. Patient likely with underlying GERD. GERD education provided. Recommend to continue Pepcid 20 mg 1 pill twice daily. Patient would benefit with GI evaluation as an outpatient to further address. Patient was evaluated for COVID 19 infection. Results are pending. Recommend to quarantine for at least 14 days. Patient may call back to the hospital in 1- 2 days to follow up on results. If positive patient will get a phone call. CDC guidelines provided. Continue quarantined, social distancing, mask and hand washing. Patient had mild elevation in LDL. Recommend to recheck fasting lipid panel in 4-6 weeks to monitor his progress. If still elevated PCP could consider adding medication for cholesterol. Vital Signs/Physical Exam: Temp Pulse Resp BP Pulse Ox 97.9 F 61 15 140/102 H 97 06/04/20 10:30 07/13/20 10:30 06/04/20 10:30 06/04/20 08:48 06/04/20 07:00 General: Alert, In no apparent distress, Oriented x3, Cooperative HEENT: Atraumatic Neck: Supple Respiratory: Clear to auscultation bilaterally, Normal air movement Cardiovascular: Normal pulses, Regular rate/rhythm Gastrointestinal: Normal bowel sounds, Soft and benign, Non-distended, No tenderness, No masses, No rebound, No guarding Neurological: Normal speech, Normal strength at 5/5 x4 extr, Normal tone, Normal affect Laboratory Data at Discharge: WBC 9.6 K/uL (4.3-10.9) 06/04/20 03:05 Hgb 16.3 g/dL (13.6-17.9) 06/04/20 03:05 Hct 50.0 % (39.6-49.0) H 06/04/20 03:05 Plt Count 265 K/uL (152-406) 06/04/20 03:05 PT 13.6 SECONDS (9.5-12.5) H 06/04/20 03:05 INR 1.16 06/04/20 03:05 APTT Cancelled 06/04/20 13:42 Sodium 138 mmol/L (136-145) 06/03/20 21:19 Potassium 3.7 mmol/L (3.5-5.1) 06/03/20 21:19 BUN 11 mg/dL (7-18) 06/03/20 21:19 Creatinine 1.12 mg/dL (0.55-1.3) 06/03/20 21:19 Glucose 85 mg/dL (74-106) 06/03/20 21:19 Magnesium 2.2 mg/dL (1.8-2.4) 06/03/20 21:19 Total Bilirubin 0.5 mg/dL (0.2-1.0) 06/03/20 21:19 AST 36 U/L (15-37) 06/03/20 21:19 ALT 49 U/L (12-78) 06/03/20 21:19 Alkaline Phosphatase 65 U/L (45-117) 06/03/20 21:19 Troponin I 1.00 ng/mL (0.0-0.045) H* 06/04/20 08:00 Triglycerides 64 mg/dL (<150) 06/04/20 03:05 Cholesterol 196 mg/dL (<200) 06/04/20 03:05 HDL Cholesterol 55 mg/dL (40-60) 06/04/20 03:05 Cholesterol/HDL Ratio 3.56 06/04/20 03:05 Home Medications: Aspirin [Aspirin EC 81 MG] 81 mg PO DAILY #30 tablet. 06/04/20 Famotidine [Pepcid] 20 mg PO BID #60 tab 06/04/20 Metoprolol Tartrate 25 mg PO BID #60 tablet 06/04/20 New Medications: Aspirin [Aspirin EC 81 MG] 81 mg PO DAILY #30 tablet. Metoprolol Tartrate 25 mg PO BID #60 tablet Famotidine [Pepcid] 20 mg PO BID #60 tab Patient Discharge Instructions: 1. Recommend follow up with PCP to establish care. 2. Patient presented with chest pain. Patient reports chest pain over the past week. He had taking medication for reflux without success. Patient evaluated the emergency room. Patient found to have elevated troponins suspicious for NSTEMI. The patient also was found to have hypertension. Patient was given medication for blood pressure. Patient seen and evaluated by Cardiology. Cardiology recommended heart catheterization to further evaluate. Heart catheterization performed showed normal coronaries. Echocardiogram obtained. No need for further evaluation. At discharge patient will continue with aspirin 81 mg daily and metoprolol 25 mg 1 pill twice daily for hypertension. May need to hold metoprolol if blood pressure less than 120 systolic or heart rate less than 50. Education on hypertension will be provided. Patient may follow up with cardiology in 1-2 weeks to follow up this hospitalization. 3. Patient likely with underlying GERD. GERD education provided. Recommend to continue Pepcid 20 mg 1 pill twice daily. Patient would benefit with GI evaluation as an outpatient to further address. Patient was evaluated for COVID 19 infection. Results are pending. Recommend to quarantine for at least 14 days. Patient may call back to the hospital in 1-2 days to follow up on results. If positive patient will get a phone call. CDC guidelines provided. Continue quarantined, social distancing, mask and hand washing. 3. Patient had mild elevation in LDL. Recommend to recheck fasting lipid panel in 4-6 weeks to monitor his progress. If still elevated PCP could consider adding medication for cholesterol. Diet: AHA Activity: Ad norma Time spent managing pt's care (in minutes): 55
[2020-06-04 13:26] VITALS: BP 159/103
[2020-06-04 13:38] VITALS: TEMP 97.6
--- NOTE | 2020-06-04 19:27 | CON ---
Date of Consultation: 06/04/2020 Chief Complaint: Chest pain. Reason For Consultation: [id number] myocardial infarction. History Of Present Illness: This is a 39-year-old male comes into the emergency room because of ches t pain, has been going on since yesterday. He thought initially it was a heartburn. However, pain k ept getting worse, pressure-like and not radiating, was related to exertion. There is no nausea, rachell phoresis or shortness of breath. He got evaluation in emergency room. EKG did not show any acute ab normalities. However, patient had elevated troponin, was admitted for non-STEMI. I was contacted by emergency room. I have started the patient on heparin drip and schedule for heart catheterization t silva. Past Medical History: None. Medications: None. Allergies: NO KNOWN DRUG ALLERGIES. Social History: Does not smoke or drink. Does not use any drugs. Family History: No mention of coronary artery disease or cancer. Review of Systems: All systems reviewed and they were negative except for mentioned in the HPI. Physical Examination: Vital Signs: Temperature is 97.6, pulse 59, breathing at 12, blood pressure 137/85, saturating 95% o n room air. General: Pleasant young male, in no apparent distress. Head and Neck: Pupils are equal, react to light. Intact eye movements. No JVD. No cervical. Neck supple. Thyroid is not enlarged. Lungs: Clear to auscultation bilaterally causing crackles. No accessory muscle use. Heart: Regular rate and rhythm. No extra sounds. Abdomen: Soft, nontender. Bowel sounds positive. No organomegaly. No masses or hernia. No rigidi ty or rebound. Extremities: No edema, clubbing, cyanosis. Intact pulses. Skin: No rash. Neurologic: Alert, awake, oriented x3. No acute focal deficits appreciated. Lymph nodes: No cervical, axillary lymphadenopathy. Investigations: The EKG without acute specific abnormalities. Troponin peaked at 1.26 and down to 1 .0. Sodium 138, potassium 3.7, creatinine is 1.1, and glucose was 128. Assessment And Plan: Fwd-[id number] myocardial infarction with elevated troponin. The patient was started on heparin, aspirin, Plavix. I saw him by bedside today and discussed the risks, benefits, alternatives of doing coronary angiogram. He agreed with the procedure. Will proceed for with coron maximo angiogram to define the anatomy of his coronary artery disease and then possible PCI if needed. /MODL Voice ID: [id number] Report ID: [id number]
[2020-06-04] MEDS ORDERED: ATORVASTATIN 10 MG TAB PO SCH (21:00)
--- NOTE | 2020-06-05 00:58 | OP ---
Date of Procedure: 06/04/2020 Surgeon: ESTRADA SULLIVAN Procedure Performed: 1.Selective coronary angiogram. 2.LV-gram. 3.Left heart catheterization. Indication For Procedure: [id number] myocardial infarction. Access: Right radial artery 6-Filipino closed with TR band. Complications: None. Bleeding: Less than of 50 mL. Total Sedation Time: 35 minutes. Description Of Procedure: After risks, benefits, and alternatives were explained to the patient, he agreed to the procedure and signed the inform consent. Patient was brought into the cardiac catheter ization laboratory, prepped and draped in usual sterile fashion and then we accessed right radial art arianne using pediatric micropuncture kit and then placed a 6-Filipino slender sheath and we took a 5-Frenc h [place] catheter into the aortic root and we over the J-wire, engaged the left main coronary artery a nd then the right coronary artery and took standard views and then we took the pigtail catheter over a J-wire into the aortic root and across the valve into the LVEDP and then we did LV-gram and then up on pullback through the aortic root, there was no difference in pressure or a gradient noted. We too k all catheters and wires, and closed the access with a TR band with good hemostasis. Impression: 1.Normal coronary arteries. 2.Normal left ventricular function with normal wall motion. 3.Normal left ventricular end-diastolic pressure. Recommendations: Medical management and evaluate for viral etiologies and check for a COVID19 to rul e out any myocarditis as a cause of this. Anyway, troponin is peaked and it has come down and echoca rdiogram is normal. The patient can be followed up as an outpatient. SR/MODL Voice ID: [id number] Report ID: [id number]
--- NOTE | 2020-06-05 08:02 | ECHO ---
HEIGHT: 5 ft 9 in WEIGHT: 198 lb 8 oz DATE OF STUDY: 06/04/[address]: belem mcclain 2-DIMENSIONAL: YES M.MODE: YES DOPPLER: YES COLOR FLOW: YES TDS: NO PORTABLE: YES DEFINITY: NO BUBBLE STUDY: NO DIAGNOSIS: NSTEMI CARDIAC HISTORY: CATHERIZATION: YES SURGERY: NO PROSTHETIC VALVE: NO PACEMAKER: NO MEASUREMENTS (cm) DIASTOLIC (NORMALS) SYSTOLIC (NORMALS) IVSd 1.1 (0.6-1.2) LA Diam 3.0 (1.9-4.0) LVEF 55% LVIDd 4.6 (3.5-5.7) LVIDs 3.3 (2.0-3.5) %FS 28% LVPWd 1.0 (0.6-1.2) Ao Diam 3.0 (2.0-3.7) 2 DIMENSIONAL ASSESSMENT: RIGHT ATRIUM: NORMAL LEFT ATRIUM: NORMAL RIGHT VENTRICLE: NORMAL LEFT VENTRICLE: NORMAL TRICUSPID VALVE: NORMAL MITRAL VALVE: NORMAL PULMONIC VALVE: NORMAL AORTIC VALVE: NORMAL PERICARDIAL EFFUSION: NONE AORTIC ROOT: NORMAL LEFT VENTRICULAR WALL MOTION: NORMAL. DOPPLER/COLOR FLOW: NORMAL. COMMENTS: NORMAL LEFT VENTRICULAR EJECTION FRACTION 55-60%. NORMAL WALL MOTION. NORMAL STUDY. TECHNOLOGIST: JESSIE GARSIA
== END 2020-06-04 14:55 | disposition home or self-care (01) | DRG 282 ==
LOC: ER 15:59 → ERHOLD 06-04 00:35 → 3RD-ICU 06-04 01:42
PROVIDERS: ADMIT Internal Medicine; ATTEND Internal Medicine
PROC: 4A023N7 Measurement of Cardiac Sampling and Pressure, Left Heart, Percutaneous Approach (ICD-10-PCS; principal; 2020-06-04)
PROC: B201YZZ Plain Radiography of Multiple Coronary Arteries using Other Contrast (ICD-10-PCS; 2020-06-04)
PROC: B205YZZ Plain Radiography of Left Heart using Other Contrast (ICD-10-PCS; 2020-06-04)
DX: I21.4 Non-ST elevation (NSTEMI) myocardial infarction (principal); I10 Essential (primary) hypertension; Z11.59 Encounter for screening for other viral diseases
CPT/HCPCS: 36415; 71045; 80048; 80061; 80076; 80307; 83735; 83880; 84484; 85025; 85610; 85730; 93306; 94760; 96365; 96366; 99285; J1644; J1650; J2250; J3010; J7040; U0002

== ENCOUNTER 2020-08-03 09:47 | Inpatient (IN) | payer SELFPAY ==
[2020-08-03 10:29] LABS: Absolute Lymphocytes (CBC) 2.2 K/uL (0.7-4.9); Basophils % 1.3 % (0-1.3); Hematocrit 48.7 % (39.6-49.0); Lymphocytes % 39.9 % (15.3-44.8); MPV 8.3 fL (7.6-11.3); RBC Red Blood Cell Count 5.99 M/uL (4.33-5.43)
[2020-08-03] MEDS ORDERED: NITROGLYCERIN 0.4 MG/TAB SL ONE (10:29)
[2020-08-03] MEDS ORDERED: ASPIRIN 81 MG CHEWABLE TABLET ONE (10:29)
[2020-08-03 10:33] LABS: Protime INR 1.02
[2020-08-03 10:45] LABS: Albumin 4.1 g/dL (3.4-5.0); Bilirubin Direct 0.1 mg/dL (0-0.2); Bilirubin Total 0.6 mg/dL (0.2-1.0); Magnesium 2.1 mg/dL (1.8-2.4); Potassium 3.8 mmol/L (3.5-5.1); Troponin (Emerg Dept Use Only) 0.35 ng/mL (0.0-0.045)
--- NOTE | 2020-08-03 10:54 | RAD REPORT ---
EXAM DESCRIPTION: RAD - Chest Single View - 08/03/2020 10:48 am CLINICAL HISTORY: CHEST PAIN Chest pain. COMPARISON: Chest Single View dated 06/03/2020 FINDINGS: Portable technique limits examination quality. The lungs are grossly clear. The heart is normal in size. No displaced fractures. IMPRESSION: No acute intrathoracic process suspected.
--- NOTE | 2020-08-03 11:21 | EDPHYS ---
Physician Documentation [facility] Name: Carlos Johnston Age: 39 yrs Sex: Male : 1980 Arrival Date: 08/03/2020 Time: 09:49 Bed 14 Private MD: ED Physician Roby Jasso HPI: 08/03 10:20 This 39 yrs old Black Male presents to ER via Ambulatory with complaints of Chest Pain. cp 10:20 The patient or guardian reports chest pain that is located primarily in the anterior cp chest wall, left. 10:20 Onset: yesterday. The pain does not radiate. Associated signs and symptoms: Pertinent cp negatives: abdominal pain, cough, dizziness, lower extremity pain, lower extremity swelling, palpitations, shortness of breath, syncope. The chest pain is described as sharp. Duration: The patient or guardian reports multiple episodes, that are intermittent. Modifying factors: the symptoms are aggravated by nothing. Severity of pain: in the emergency department the pain is a 5 / 10. Historical: - Allergies: 10:13 No Known Allergies; ss - Home Meds: 10:13 "supposed to take BP meds" [Active]; ss - PMHx: 10:13 Hypertension; ss - PSHx: 10:13 None; ss - Immunization history:: Adult Immunizations up to date. - Social history:: Smoking status: Patient/guardian denies using tobacco, but has a distant history of tobacco abuse. ROS: 10:25 Constitutional: Negative for body aches, chills, fever. cp 10:25 Eyes: Negative for injury, pain, redness, and discharge. cp 10:25 ENT: Negative for ear pain, sore throat, difficulty swallowing, difficulty handling secretions. 10:25 Neck: Negative for pain with movement, pain at rest, stiffness. 10:25 Cardiovascular: Positive for chest pain, Negative for edema, palpitations. 10:25 Respiratory: Negative for cough, shortness of breath, wheezing. 10:25 Abdomen/GI: Negative for abdominal pain, nausea, vomiting, and diarrhea. 10:25 Back: Negative for radiated pain. 10:25 Neuro: Negative for altered mental status, headache, syncope, weakness. 10:25 All other systems are negative. Exam: 10:30 ECG was reviewed by the Attending Physician. cp 10:32 Constitutional: The patient appears in no acute distress, alert, awake, cp non-diaphoretic, non-toxic, well developed, well nourished. 10:32 Head/Face: Normocephalic, atraumatic. cp 10:32 Eyes: Periorbital structures: appear normal, Conjunctiva: normal, no exudate, no injection, Sclera: no appreciated abnormality, Lids and lashes: appear normal, bilaterally. 10:32 ENT: External ear(s): are unremarkable, Nose: is normal, Mouth: Lips: moist, Oral mucosa: pink and intact, moist, Posterior pharynx: Airway: no evidence of obstruction, patent. 10:32 Neck: ROM/movement: is normal, is supple, without pain, no range of motions limitations. 10:32 Chest/axilla: Inspection: normal, Palpation: is normal, no crepitus, no tenderness. 10:32 Cardiovascular: Rate: bradycardic, Rhythm: regular, Pulses: Pulses are 2+ in right radial artery and left radial artery. Edema: is not appreciated, JVD: is not appreciated. 10:32 Respiratory: the patient does not display signs of respiratory distress, Respirations: normal, no use of accessory muscles, no retractions, labored breathing, is not present, Breath sounds: are clear throughout, no decreased breath sounds. 10:32 Abdomen/GI: Inspection: abdomen appears normal, Bowel sounds: active, all quadrants, Palpation: abdomen is soft and non-tender, in all quadrants, rebound tenderness, is not appreciated, voluntary guarding, is not appreciated, involuntary guarding, is not appreciated. 10:32 Back: pain, is absent, ROM is normal. 10:32 Neuro: Orientation: to person, place \\T\\ time. Mentation: is normal, Motor: moves all fours, strength is normal. Vital Signs: 10:10 BP 150 / 105; Pulse 68; Resp 14; Temp 98.4(TE); Pulse Ox 100% on R/A; Weight 90.72 kg; ss Height 5 ft. 9 in. (175.26 cm); Pain 6/10; 10:30 BP 123 / 86; Pulse 56; Resp 16; Pulse Ox 98% ; Pain 0/10; ll1 11:31 Weight 91.9 kg (M); ll1 11:39 BP 130 / 90; Pulse 62; Resp 16; Pulse Ox 98% ; Pain 0/10; ll1 12:16 BP 117 / 84; Pulse 56; Resp 15; Temp 98.1; Pulse Ox 98% on R/A; Pain 0/10; ll1 12:51 BP 117 / 84; Pulse 53; Resp 16; Pulse Ox 99% on R/A; Pain 0/10; ll1 11:31 Body Mass Index 29.92 (91.90 kg, 175.26 cm) ll1 MDM: 10:09 Patient medically screened. cp 10:35 Differential diagnosis: abnormal EKG, acute myocardial infarction, acute pericarditis, cp pancreatitis, pneumonia, pneumothorax, pulmonary embolus, stable angina, thoracic aortic disection, unstable angina. 11:15 Data reviewed: vital signs, nurses notes, lab test result(s), EKG, radiologic studies, cp plain films, I have discussed the patient's presentation/case with the attending Emergency Department Physician;. 11:15 The patient was given aspirin in the Emergency Department. Test interpretation: by ED cp physician or midlevel provider: ECG. 11:20 Physician consultation: Paxton Chacon was called at 11:20, was contacted at 11:20, regarding admission, to the telemetry unit. patient's condition. 11:20 Counseling: I had a detailed discussion with the patient and/or guardian regarding: the cp historical points, exam findings, and any diagnostic results supporting the discharge/admit diagnosis, lab results, radiology results, the need for further work-up and treatment in the hospital. 08/03 10:09 Order name: Basic Metabolic Panel; Complete Time: 11:13 08/03 11:15 Interpretation: Normal except: CL 109; GFR 82. 08/03 10:09 Order name: CBC with Diff; Complete Time: 10:44 cp 08/03 10:44 Interpretation: Normal except: RBC 5.99; MCH 26.5. cp 08/03 10:09 Order name: LFT's; Complete Time: 11:13 cp 08/03 10:09 Order name: Magnesium; Complete Time: 11:13 cp 08/03 10:09 Order name: NT PRO-BNP; Complete Time: 11:13 cp 08/03 10:09 Order name: PT-INR; Complete Time: 10:44 cp 08/03 10:09 Order name: Troponin (emerg Dept Use Only); Complete Time: 11:13 cp 08/03 11:13 Interpretation: Abnormal: TROPED 0.35. cp 08/03 10:09 Order name: XRAY Chest (1 view); Complete Time: 11:13 cp 08/03 10:09 Order name: EKG; Complete Time: 10:10 cp 08/03 10:09 Order name: D-Dimer; Complete Time: 10:44 cp 08/03 10:44 Interpretation: D-DIMER 432; Reviewed. cp 08/03 10:11 Order name: UDS cp 08/03 10:09 Order name: Cardiac monitoring; Complete Time: 10:32 cp 08/03 10:09 Order name: EKG - Nurse/Tech; Complete Time: 10:47 cp 08/03 10:09 Order name: IV Saline Lock; Complete Time: 10:47 cp 08/03 10:09 Order name: Labs collected and sent; Complete Time: 10:47 cp 08/03 10:09 Order name: O2 Per Protocol; Complete Time: 10:32 cp 08/03 10:09 Order name: O2 Sat Monitoring; Complete Time: 10:33 cp EC:30 Rate is 57 beats/min. Rhythm is regular. SC interval is normal. QRS interval is normal. cp QT interval is normal. T waves are Inverted in leads III, aVR. Interpreted by me. Reviewed by me. Administered Medications: 10:15 Drug: Aspirin Chewable Tablet 324 mg Route: PO; ll1 13:08 Follow up: Response: No adverse reaction; RASS: Alert and Calm (0) ll1 12:08 Drug: Lovenox 1 mg/kg Route: Sub-Q; Site: right lower abdomen; ll1 13:08 Follow up: Response: No adverse reaction; RASS: Alert and Calm (0) ll1 12:54 Not Given (no CP): Nitroglycerin 0.4 mg Sublingual once ll1 Disposition: 16:18 Co-signature as Attending Physician, Roby Jasso MD. ma2 Disposition: 08/03/20 11:20 Hospitalization ordered by Paxton Chacon for Inpatient Admission. Preliminary diagnosis is Non-ST elevation (NSTEMI) myocardial infarction. - Bed requested for Telemetry/MedSurg (Inpatient). - Status is Inpatient Admission. ss - Condition is Stable. - Problem is new. - Symptoms have improved. Signatures: Dispatcher [employer] EDMS Miri Israel bd Aditi Patrick RN RN ss Jose Maria Quintanilla PA PA Roby Bearden MD MD ma2 Jamal Junior RN RN ll1 Corrections: (The following items were deleted from the chart) 11:44 11:20 Hospitalization Ordered by Paxton Chacon for Inpatient Admission. Preliminary bd diagnosis is Non-ST elevation (NSTEMI) myocardial infarction. Bed requested for Telemetry/MedSurg (Inpatient). Status is Inpatient Admission. Condition is Stable. Problem is new. Symptoms have improved. cp 13:27 11:44 08/03/2020 11:20 Hospitalization Ordered by Paxton Chacon for Inpatient ss Admission. Preliminary diagnosis is Non-ST elevation (NSTEMI) myocardial infarction. Bed requested for Telemetry/MedSurg (Inpatient). Status is Inpatient Admission. Condition is Stable. Problem is new. Symptoms have improved. bd
--- NOTE | 2020-08-03 11:21 | ER ---
Nurse's Notes [facility] Name: Carlos Johnston Age: 39 yrs Sex: Male : 1980 Arrival Date: 08/03/2020 Time: 09:49 Bed 14 Private MD: Diagnosis: Non-ST elevation (NSTEMI) myocardial infarction Presentation: 08/03 10:10 Chief complaint: Patient states: L sided CP that comes and goes since yesterday. ss Coronavirus screen: Client denies travel out of the [place] in the last 14 days. Ebola Screen: Patient denies exposure to infectious person. Patient denies travel to an Ebola-affected area in the 21 days before illness onset. Initial Sepsis Screen: Does the patient meet any 2 criteria? No. Patient's initial sepsis screen is negative. Does the patient have a suspected source of infection? No. Patient's initial sepsis screen is negative. Risk Assessment: Do you want to hurt yourself or someone else? Patient reports no desire to harm self or others. Onset of symptoms was August 02, 2020. 10:10 Method Of Arrival: Ambulatory ss 10:10 Acuity: RHONDA 3 ss Historical: - Allergies: 10:13 No Known Allergies; ss - Home Meds: 10:13 "supposed to take BP meds" [Active]; ss - PMHx: 10:13 Hypertension; ss - PSHx: 10:13 None; ss - Immunization history:: Adult Immunizations up to date. - Social history:: Smoking status: Patient/guardian denies using tobacco, but has a distant history of tobacco abuse. Screenin:05 Abuse screen: Denies threats or abuse. Nutritional screening: No deficits noted. ll1 Tuberculosis screening: No symptoms or risk factors identified. Fall Risk IV access (20 points). Total Bar Fall Scale indicates No Risk (0-24 pts). Assessment: 10:10 General: Appears comfortable, Behavior is calm, cooperative, appropriate for age. ll1 General: Intermittent sharp left sided chest pain for 2 days. Slight SOB at times. No cough or fever.. Pain: Denies pain. Neuro: No deficits noted. Cardiovascular: Reports chest pain, shortness of breath, Heart tones S1 S2 Capillary refill < 3 seconds Clubbing of nail beds is absent JVD is absent Patient's skin is warm and dry. Pulses are all present. Rhythm is regular. Respiratory: No deficits noted. Airway is patent Trachea midline Respiratory effort is even, unlabored, Respiratory pattern is regular, symmetrical, Breath sounds are clear bilaterally. GI: No deficits noted. 11:10 Reassessment: No changes from previously documented assessment. Patient and/or family ll1 updated on plan of care and expected duration. Pain level reassessed. Patient is alert, oriented x 3, equal unlabored respirations, skin warm/dry/pink. 12:10 Reassessment: No changes from previously documented assessment. Patient and/or family ll1 updated on plan of care and expected duration. Pain level reassessed. Patient is alert, oriented x 3, equal unlabored respirations, skin warm/dry/pink. Admission room 206, patient informed. 13:07 Pain: Pain does not radiate. Pain began 1 day ago. ll1 Vital Signs: 10:10 BP 150 / 105; Pulse 68; Resp 14; Temp 98.4(TE); Pulse Ox 100% on R/A; Weight 90.72 kg; ss Height 5 ft. 9 in. (175.26 cm); Pain 6/10; 10:30 BP 123 / 86; Pulse 56; Resp 16; Pulse Ox 98% ; Pain 0/10; ll1 11:31 Weight 91.9 kg (M); ll1 11:39 BP 130 / 90; Pulse 62; Resp 16; Pulse Ox 98% ; Pain 0/10; ll1 12:16 BP 117 / 84; Pulse 56; Resp 15; Temp 98.1; Pulse Ox 98% on R/A; Pain 0/10; ll1 12:51 BP 117 / 84; Pulse 53; Resp 16; Pulse Ox 99% on R/A; Pain 0/10; ll1 11:31 Body Mass Index 29.92 (91.90 kg, 175.26 cm) ll1 ED Course: 09:49 Patient arrived in ED. mr 10:04 Jose Maria Quintanilla PA is PHCP. cp 10:04 Roby Jasso MD is Attending Physician. cp 10:05 Jamal Junior, JEN is Primary Nurse. ll1 10:10 Patient has correct armband on for positive identification. Bed in low position. Call ll1 light in reach. Side rails up X 1. quality assurance monitor final on. Pulse ox on. NIBP on. 10:10 Inserted saline lock: 20 gauge in right antecubital area, using aseptic technique. ll1 Blood collected. 10:13 Triage completed. ss 10:13 Arm band placed on right wrist. ss 10:48 XRAY Chest (1 view) In Process Unspecified. EDGA 11:19 Paxton Chacon is Hospitalizing Provider. cp 13:06 No provider procedures requiring assistance completed. Patient admitted, IV remains in ll1 place. Patient maintains SpO2 saturation greater than 95% on room air. Administered Medications: 10:15 Drug: Aspirin Chewable Tablet 324 mg Route: PO; ll1 13:08 Follow up: Response: No adverse reaction; RASS: Alert and Calm (0) ll1 12:08 Drug: Lovenox 1 mg/kg Route: Sub-Q; Site: right lower abdomen; ll1 13:08 Follow up: Response: No adverse reaction; RASS: Alert and Calm (0) ll1 12:54 Not Given (no CP): Nitroglycerin 0.4 mg Sublingual once ll1 Outcome: 11:20 Decision to Hospitalize by Provider. cp 13:06 Admitted to Tele accompanied by tech, room 206, with chart, Report called to Ludm[place] [address] on 13:06 Condition: stable 13:06 Instructed on the need for admit. 13:27 Patient left the ED. ss Signatures: Dispatcher [employer] EDGA Paty Rainey Shelby, RN RN ss Jose Maria Quintanilla PA PA cp Jamal Junior, RN RN [facility]
[2020-08-03] MEDS ORDERED: ENOXAPARIN 100 MG/ML SYR SQ ONE (11:44)
--- NOTE | 2020-08-03 13:46 | P.HP ---
Certification for Inpatient Patient admitted to: Observation With expected LOS: <2 Midnights Practitioner: I am a practitioner with admitting privileges, knowledge of patient current condition, hospital course, and medical plan of care. Services: Services provided to patient in accordance with Admission requirements found in Title 42 Section 412.3 of the Code of Federal Regulations Patient History Date of Service: 08/03/20 Reason for admission: Chest pain History of Present Illness: 39-year-old gentleman with a history of hypertension, noncompliant with therapy presented emergency department with a complaint of chest pain of onset yesterday. Patient described a sharp anterior chest pain, nonradiating, maximum intensity about 5/10, no relieving or aggravating factors. He was here 2 months ago for similar complaint. His troponin was elevated then. He underwent cardiac catheterization which showed normal coronary artery. His troponin is elevated to 0.35 today. Chest x-ray is unremarkable. EKG shows no ischemic changes. He received a shot of full-dose Lovenox in the ED Patient is placed under observation for further management of NSTEMI. Allergies No Known Allergies Allergy (Verified 06/04/20 03:37) Home Medications: Aspirin [Aspirin EC 81 MG] 81 mg PO DAILY #30 tablet. 06/04/20 Famotidine [Pepcid] 20 mg PO BID #60 tab 06/04/20 Metoprolol Tartrate 25 mg PO BID #60 tablet 06/04/20 - Past Medical/Surgical History Diabetic: No -: None -: Hypertension -: None - Family History Mother -: Hypertension Father Notes: Father - lupus - Social History Smoking Status: Current every day smoker Alcohol use: No CD- Drugs: No Caffeine use: Yes Review of Systems Other: Except as documented, all other systems reviewed and negative. Physical Examination - Vital Signs Temperature: 98.1 F Blood Pressure: 117/84 Pulse: 53 Respirations: 16 - Physical Exam General: Alert, In no apparent distress, Oriented x3 HEENT: Mucous membr. moist/pink Neck: Supple, JVD not distended Respiratory: Clear to auscultation bilaterally, Normal air movement Cardiovascular: No edema, Regular rate/rhythm, Normal S1 S2 Gastrointestinal: Normal bowel sounds, Soft and benign, No tenderness Musculoskeletal: No swelling, No erythema Integumentary: No rashes, No tenderness/swelling Neurological: Normal strength at 5/5 x4 extr - Studies Laboratory Data (last 24 hrs) 08/03/20 10:10: PT 12.0, INR 1.02 08/03/20 10:10: WBC 5.4, Hgb 15.9, Hct 48.7, Plt Count 249 08/03/20 10:10: Sodium 142, Potassium 3.8, BUN 15, Creatinine 1.19, Glucose 88, Magnesium 2.1, Total Bilirubin 0.6, AST 26, ALT 39, Alkaline Phosphatase 67 Assessment and Plan - Plan Place under observation. Trend troponin Start aspirin Full-dose Lovenox. Cardiology consult. Metoprolol 25 mg b.i.d. Aggressive blood pressure control. - Advance Directives Does patient have a Living Will: No Does patient have a Durable POA for Healthcare: No
[2020-08-03] MEDS ORDERED: ACETAMINOPHEN 500 MG TAB PO PRN (14:27)
[2020-08-03] MEDS ORDERED: MORPHINE 2 MG/ML SYR IV PRN (14:27)
[2020-08-03] MEDS ORDERED: NITROGLYCERIN 0.4 MG/TAB SL PRN (14:27)
[2020-08-03 15:11] LABS: Troponin I 0.28 ng/mL (0.0-0.045)
[2020-08-03 16:16] LABS: Barbiturates NEGATIVE (NEGATIVE); Benzodiazepines NEGATIVE (NEGATIVE); Cocaine NEGATIVE (NEGATIVE); METHAMPHETAM NEGATIVE (NEGATIVE); Methadone NEGATIVE (NEGATIVE); Opiates NEGATIVE (NEGATIVE); Phencyclidine NEGATIVE (NEGATIVE); THC Cannibis NEGATIVE (NEGATIVE)
[2020-08-03 16:45] VITALS: BMI 29.8
--- NOTE | 2020-08-03 18:18 | P.PN ---
Date of Service: 08/03/20 Patient refused blood refused further troponin test today. Will get another test in am.
[2020-08-03] MEDS: METOPROLOL TAR 25 MG TAB PO SCH (21:37)
[2020-08-03] MEDS: ENOXAPARIN 100 MG/ML SYR SQ SCH (21:40)
--- NOTE | 2020-08-03 22:53 | CON ---
Date of Consultation: 08/03/2020 Reason For Consultation: Elevated troponin and chest pain. History Of Present Illness: Mr. Johnston is a 39-year-old black male without any significant past medic al history except for hypertension, who came in with chest pain. Apparently, he was prescribed some medication in May of 2020 for hypertension and elevated troponin, but quit taking it because he felt better. During his last admission in May, a heart catheterization was done by Dr. Rojas for abnor mal troponin and chest pain, and that was perfectly normal without any evidence of plaques or focal s tenosis. His chest pain was described as pressure. He was hypertensive when he came in at 146/96. Past Medical History: Positive for hypertension. Allergies: NONE. Review of Systems: Negative. Social History: Negative. Family History: Noncontributory. Medications: At home right now are none. Physical Examination: General: When I saw him, he was in no acute distress. Still hypertensive, but better controlled, si nus rhythm. HEENT: Negative. Neck: Supple. No bruit. Chest: Clear to auscultation and percussion. Cardiac: Regular rhythm and rate. No murmurs, gallops, or rubs. Abdomen: Benign. Extremities: No clubbing, cyanosis, or edema. Diagnostic Data: Positive troponin. Otherwise, the rest of it was normal. Impression And Plan: Chest pain and positive troponin secondary to hypertension. Normal heart kathi terization less than 2 months ago. The patient does not need any further cardiac workup at this poin t. I think he needs to be on a beta-keely and maybe a calcium channel keely as well with a low-d ose diuretic and he needs to be more compliant with his medication, but as far as I am concerned, he can go home today, but I will discuss the case further with Dr. Chacon. TERRENCE/PIPE Voice ID: [id number] Report ID: [id number]
[2020-08-04 05:35] VITALS: TEMP 97.4
[2020-08-04 06:12] LABS: Absolute Lymphocytes (CBC) 2.8 K/uL (0.7-4.9); Basophils % 0.7 % (0-1.3); Hematocrit 45.9 % (39.6-49.0); Lymphocytes % 43.5 % (15.3-44.8); MPV 8.8 fL (7.6-11.3); RBC Red Blood Cell Count 5.58 M/uL (4.33-5.43)
[2020-08-04] MEDS: ENOXAPARIN 100 MG/ML SYR SQ SCH (09:00)
[2020-08-04] MEDS ORDERED: ASPIRIN EC 81 MG TAB PO SCH (09:00)
[2020-08-04 09:29] VITALS: O2SAT 95
[2020-08-04 09:43] VITALS: BP 138/86
--- NOTE | 2020-08-04 10:31 | P.DS ---
Admission Date: 08/03/20 Discharge Date: 08/04/20 Disposition: ROUTINE DISCHARGE Reason for Admission: Chest pain Consultations: Cardiology Brief History of Present Illness: 39-year-old gentleman with a history of hypertension, noncompliant with therapy presented emergency department with a complaint of chest pain of onset yesterday. Patient described a sharp anterior chest pain, nonradiating, maximum intensity about 5/10, no relieving or aggravating factors. He was here 2 months ago for similar complaint. His troponin was elevated then. He underwent cardiac catheterization which showed normal coronary artery. His troponin is elevated to 0.35 today. Chest x-ray unremarkable. EKG showed no ischemic changes. He received a shot of full-dose Lovenox in the ED Patient was placed under observation for further management of NSTEMI. Hospital Course: Patient place under observation on the medical floor. He was treated with full- dose Lovenox and aspirin. He was normotensive during the hospital stay. Troponin trended up to 1.5. Patient was seen and evaluated by cardiology-Dr. Painting. Patient noted to have normal coronary artery by previous cardiac catheterization 2 months ago. He is clinically stable for discharge per cardiology. He is prescribed lipitor for hypercholesteremia. He is also prescribed Toprol-XL once-a-day dose to enhance compliance. He has been advised to find a PCP as soon as possible to managed his medical condition. He is also informed that he will need cardiology to monitor him. Vital Signs/Physical Exam: Temp Pulse Resp BP Pulse Ox 97.4 F 62 16 138/86 98 08/04/20 08:00 08/04/20 08:00 08/04/20 08:00 08/04/20 08:00 08/04/20 08:00 General: Alert, In no apparent distress, Oriented x3 HEENT: Mucous membr. moist/pink Neck: JVD not distended Respiratory: Clear to auscultation bilaterally, Normal air movement Cardiovascular: No edema, Regular rate/rhythm, Normal S1 S2 Gastrointestinal: Normal bowel sounds, Soft and benign, No tenderness Musculoskeletal: No swelling, No erythema Integumentary: No rashes Neurological: Normal strength at 5/5 x4 extr Laboratory Data at Discharge: WBC 6.4 K/uL (4.3-10.9) D 08/04/20 05:19 Hgb 14.8 g/dL (13.6-17.9) 08/04/20 05:19 Hct 45.9 % (39.6-49.0) 08/04/20 05:19 Plt Count 240 K/uL (152-406) 08/04/20 05:19 PT 12.0 SECONDS (9.5-12.5) 08/03/20 10:10 INR 1.02 08/03/20 10:10 APTT 44.8 SECONDS (24.3-36.9) H 08/04/20 05:19 Sodium 142 mmol/L (136-145) 08/03/20 10:10 Potassium 3.8 mmol/L (3.5-5.1) 08/03/20 10:10 BUN 15 mg/dL (7-18) 08/03/20 10:10 Creatinine 1.19 mg/dL (0.55-1.3) 08/03/20 10:10 Glucose 88 mg/dL (74-106) 08/03/20 10:10 Magnesium 2.1 mg/dL (1.8-2.4) 08/03/20 10:10 Total Bilirubin 0.6 mg/dL (0.2-1.0) 08/03/20 10:10 AST 26 U/L (15-37) 08/03/20 10:10 ALT 39 U/L (12-78) 08/03/20 10:10 Alkaline Phosphatase 67 U/L (45-117) 08/03/20 10:10 Troponin I 1.53 ng/mL (0.0-0.045) H* 08/04/20 05:19 Triglycerides 56 mg/dL (<150) 08/03/20 14:38 Cholesterol 190 mg/dL (<200) 08/03/20 14:38 HDL Cholesterol 51 mg/dL (40-60) 08/03/20 14:38 Cholesterol/HDL Ratio 3.73 08/03/20 14:38 Home Medications: Aspirin [Aspirin EC 81 MG] 81 mg PO DAILY #30 tablet.dr 08/04/20 Atorvastatin Calcium [Lipitor] 10 mg PO BEDTIME #30 tab 08/04/20 Metoprolol Succinate 25 mg PO DAILY #30 tab.er.24h 08/04/20 Nitroglycerin [Nitrostat*] 0.4 mg SL UD PRN #30 tab 08/04/20 New Medications: Aspirin [Aspirin EC 81 MG] 81 mg PO DAILY #30 tablet. Atorvastatin Calcium [Lipitor] 10 mg PO BEDTIME #30 tab Metoprolol Succinate 25 mg PO DAILY #30 tab.er.24h Nitroglycerin [Nitrostat*] 0.4 mg SL UD PRN #30 tab PRN Reason: Pain Scale 2-4 (Mild) Patient Discharge Instructions: Find a PCP to manage your hypertension and high cholesterol. Also will need referal to a life enrichment director to monitor you. Diet: AHA Activity: Ad norma
[2020-08-04] MEDS: METOPROLOL TAR 25 MG TAB PO SCH (10:52)
--- NOTE | 2020-08-05 09:48 | EKG ---
Test Date: 2020-08-03 Test Time: 10:23:58 Neuropsychology Division Chief: CAITLIN MEASUREMENT RESULTS: Intervals: Rate: 57 NJ: 154 QRSD: 82 QT: 394 QTc: 383 [place]: P: 57 NJ: 154 QRS: 2 T: 9 INTERPRETIVE STATEMENTS: Sinus bradycardia with sinus arrhythmia Nonspecific ST and T wave abnormality Abnormal ECG Compared to ECG 06/03/2020 16:48:10 ST (T wave) deviation now present Sinus rhythm no longer present Myocardial infarct finding no longer present Electronically Signed On 08-05-20 09:44:51 CDT by Mahesh Painting
== END 2020-08-04 11:30 | disposition home or self-care (01) | DRG 282 ==
LOC: ER 09:47 → ERHOLD 11:21 → 2ND 13:09 → OBSVTOIN 15:50
PROVIDERS: ADMIT Internal Medicine; ATTEND Internal Medicine
DX: I21.4 Non-ST elevation (NSTEMI) myocardial infarction (principal); I10 Essential (primary) hypertension; I25.10 Atherosclerotic heart disease of native coronary artery without angina pectoris; F17.200 Nicotine dependence, unspecified, uncomplicated; Z91.19 Patient's noncompliance with other medical treatment and regimen; Z79.82 Long term (current) use of aspirin; Z79.899 Other long term (current) drug therapy; Z53.29 Procedure and treatment not carried out because of patient's decision for other reasons; Z20.828 Contact with and (suspected) exposure to other viral communicable diseases
CPT/HCPCS: 36415; 71045; 80048; 80061; 80076; 80307; 83735; 83880; 84484; 85025; 85379; 85610; 85730; 93005; 96372; 99285; G0378; J1650; U0002

== ENCOUNTER 2022-05-07 18:08 | Emergency (ER) | payer SELFPAY ==
--- NOTE | 2022-05-07 19:34 | ER ---
Nurse's Notes [facility] Name: Woodruff Age: 41 yrs Sex: Male : 1980 Arrival Date: 05/07/2022 Time: 18:10 Bed 16 Private MD: Diagnosis: Strain of other muscles, fascia and tendons at shoulder and upper arm level, right arm;Ganglion, right hand Presentation: 05/07 18:25 Chief complaint: Patient states: my RIGHT FA has been aching for the last week. and my tw2 middle finger went back and i got a little knot. the pain is why i came today. Coronavirus screen: At this time, the client does not indicate any symptoms associated with coronavirus-19. Ebola Screen: Patient denies travel to an Ebola-affected area in the 21 days before illness onset. Initial Sepsis Screen: Does the patient meet any 2 criteria? No. Patient's initial sepsis screen is negative. Does the patient have a suspected source of infection? No. Patient's initial sepsis screen is negative. Risk Assessment: Do you want to hurt yourself or someone else? Patient reports no desire to harm self or others. Onset of symptoms was May 07, 2022. 18:25 Acuity: RHONDA 4 tw2 18:25 Method Of Arrival: Ambulatory tw2 Triage Assessment: 18:27 General: Appears in no apparent distress. well groomed, Behavior is calm, cooperative, tw2 appropriate for age. Pain: Complains of pain in right arm. Historical: - Allergies: 18:27 No Known Allergies; tw2 - Home Meds: 18:27 None [Active]; tw2 - PMHx: 18:27 Hypertension; tw2 - PSHx: 18:27 None; tw2 - Immunization history:: Client reports having NOT received the Covid vaccine. - Social history:: Smoking status: Patient denies any tobacco usage or history of. Screenin:12 Abuse screen: Denies threats or abuse. Denies injuries from another. Nutritional lp1 screening: No deficits noted. Tuberculosis screening: No symptoms or risk factors identified. Fall Risk None identified. Assessment: 19:30 General: Appears in no apparent distress. Behavior is calm, cooperative, appropriate lp1 for age. Pain: Complains of pain in dorsal aspect of right forearm Pain currently is 6 out of 10 on a pain scale. Aggravated by increased activity, repositioning. Neuro: Level of Consciousness is awake, alert, obeys commands. Cardiovascular: Patient's skin is warm and dry. Respiratory: Respiratory effort is even, unlabored. GI: No signs and/or symptoms were reported involving the gastrointestinal system. : No signs and/or symptoms were reported regarding the genitourinary system. EENT: No signs and/or symptoms were reported regarding the EENT system. Derm: Skin is intact, Skin is dry, Skin is normal. Musculoskeletal: No deficits noted. Range of motion: intact in all extremities. Vital Signs: 18:25 BP 157 / 93; Pulse 88; Resp 17; Temp 98.4; Pulse Ox 99% on R/A; Pain 9/10; tw2 ED Course: 18:10 Patient arrived in ED. as 18:27 Triage completed. tw2 18:27 Arm band placed on. tw2 19:07 Lenin Diop NP is PHCP. pm1 19:07 Rick Molina MD is Attending Physician. pm1 19:08 Freida Woods, RN is Primary Nurse. lp1 20:12 Patient has correct armband on for positive identification. lp1 20:12 No provider procedures requiring assistance completed. Patient did not have IV access lp1 during this emergency room visit. Administered Medications: 20:00 Drug: Decadron (dexamethasone) 10 mg {Note: Given PO per order; Patient refused IM lp1 injection .} Route: IM; Site: Other; 20:11 Follow up: Response: Medication administered at discharge. lp1 20:00 Drug: Flexeril (cyclobenzaprine) 10 mg Route: PO; lp1 20:11 Follow up: Response: Medication administered at discharge. lp1 20:00 Drug: Ibuprofen 600 mg Route: PO; lp1 20:11 Follow up: Response: Medication administered at discharge. lp1 Medication: 20:11 VIS not applicable for this client. lp1 Outcome: 19:33 Discharge ordered by . pm1 20:12 Discharged to home ambulatory. lp1 20:12 Condition: good 20:12 Discharge instructions given to patient, Instructed on discharge instructions, follow up and referral plans. medication usage, Demonstrated understanding of instructions, follow-up care, medications, Prescriptions given X 3. 20:12 Patient left the ED. lp1 Signatures: Ashly Buck Laura RN RN lp1 Lenin Diop, CHUR[employer] HISTORY PROFESSOR [employer] HISTORY PROFESSOR pm1 Mis Hogan RN RN tw2 Corrections: (The following items were deleted from the chart) 05/08 04:05/07 20:30 General: Appears in no apparent distress. Behavior is calm, cooperative, 1 appropriate for age, [facility] 05/08 04:05/07 20:30 Pain: Complains of pain in dorsal aspect of right forearm Pain currently is lp 6 out of 10 on a pain scale. Aggravated by increased activity, repositioning, [facility] 05/08 04:05/07 20:30 Neuro: Level of Consciousness is awake, alert, obeys commands, [place] [id number] 05/08 04:05/07 20:30 Cardiovascular: Patient's skin is warm and dry. [place] [id number] 05/08 04:05/07 20:30 Respiratory: Respiratory effort is even, unlabored, [place] [id number] 05/08 04:05/07 20:30 GI: No signs and/or symptoms were reported involving the gastrointestinal lp1 system. [facility] 05/08 04:05/07 20:30 : No signs and/or symptoms were reported regarding the genitourinary lp1 system. [facility] 05/08 04:05/07 20:30 EENT: No signs and/or symptoms were reported regarding the EENT system. [place] [id number] 05/08 04:05/07 20:30 Derm: Skin is intact, Skin is dry, Skin is normal, [place] [id number] 05/08 04:05/07 20:30 Musculoskeletal: No deficits noted. Range of motion: intact in all [facility] extremities, [facility]
--- NOTE | 2022-05-07 19:34 | EDPHYS ---
Physician Documentation [facility] Name: Woodruff Age: 41 yrs Sex: Male : 1980 Arrival Date: 05/07/2022 Time: 18:10 Bed 16 Private MD: ED Physician Rick Molina HPI: 05/07 19:29 This 41 yrs old Black Male presents to ER via Ambulatory with complaints of Arm Pain. pm1 19:29 The patient or guardian complains of pain, that is acute. The complaints affect the pm1 right antecubital area. Context: The problem was sustained at an unknown location. Onset: The symptoms/episode began/occurred 2 week(s) ago. Treatment prior to arrival includes: aspirin occasionally and it helps. Modifying factors: The symptoms are alleviated by activity. the symptoms are aggravated by rest. Associated signs and symptoms: The patient has no apparent associated signs or symptoms. Severity of symptoms: in the emergency department the symptoms are unchanged. The patient has not experienced similar symptoms in the past. The patient has not recently seen a physician. patient with bump present to present to right hand that has been present for many years. Historical: - Allergies: 18:27 No Known Allergies; tw2 - Home Meds: 18:27 None [Active]; tw2 - PMHx: 18:27 Hypertension; tw2 - PSHx: 18:27 None; tw2 - Immunization history:: Client reports having NOT received the Covid vaccine. - Social history:: Smoking status: Patient denies any tobacco usage or history of. ROS: 19:29 Constitutional: Negative for fever, chills, and weight loss, Cardiovascular: Negative pm1 for chest pain, palpitations, and edema, Respiratory: Negative for shortness of breath, cough, wheezing, and pleuritic chest pain, Abdomen/GI: Negative for abdominal pain, nausea, vomiting, diarrhea, and constipation. 19:29 Neuro: Negative for headache, weakness, numbness, tingling, and seizure. 19:29 MS/extremity: Positive for pain, of the right antecubital area, Negative for decreased range of motion, deformity. 19:29 Skin: Positive for of the palm of right hand, mass. 19:29 All other systems are negative. Exam: 19:29 Constitutional: This is a well developed, well nourished patient who is awake, alert, pm1 and in no acute distress. Head/Face: Normocephalic, atraumatic. 19:29 Skin: Warm, dry with normal turgor. Normal color with no rashes, no lesions, and no evidence of cellulitis. 19:29 Cardiovascular: Exam negative for acute changes, Rate: normal, Rhythm: regular, Pulses: no pulse deficits are appreciated. 19:29 Respiratory: Exam negative for acute changes, respiratory distress, shortness of breath. 19:29 Musculoskeletal/extremity: Extremities: grossly normal except: noted in the right antecubital area: tenderness, There is no evidence of decreased ROM, deformity, swelling, ROM: intact in all extremities, Circulation is intact in all extremities. 19:29 Skin: ganglion cyst present to right palm. 19:29 Neuro: Exam negative for acute changes, Orientation: is normal, Mentation: is normal, Motor: is normal, moves all fours. Vital Signs: 18:25 BP 157 / 93; Pulse 88; Resp 17; Temp 98.4; Pulse Ox 99% on R/A; Pain 9/10; tw2 MDM: 19:08 Patient medically screened. pm1 19:25 Data reviewed: vital signs. Data interpreted: Pulse oximetry: on room air is 99 %. pm1 Interpretation: normal. 19:29 Counseling: I had a detailed discussion with the patient and/or guardian regarding: the pm1 historical points, exam findings, and any diagnostic results supporting the discharge/admit diagnosis, the need for outpatient follow up, to return to the emergency department if symptoms worsen or persist or if there are any questions or concerns that arise at home. Administered Medications: 20:00 Drug: Decadron (dexamethasone) 10 mg {Note: Given PO per order; Patient refused IM lp1 injection .} Route: IM; Site: Other; 20:11 Follow up: Response: Medication administered at discharge. lp1 20:00 Drug: Flexeril (cyclobenzaprine) 10 mg Route: PO; lp1 20:11 Follow up: Response: Medication administered at discharge. lp1 20:00 Drug: Ibuprofen 600 mg Route: PO; lp1 20:11 Follow up: Response: Medication administered at discharge. lp1 Disposition Summary: 05/07/22 19:33 Discharge Ordered Location: Home pm1 Problem: new pm1 Symptoms: have improved pm1 Condition: Stable pm1 Diagnosis - Strain of other muscles, fascia and tendons at shoulder and upper arm level, right pm1 arm - Ganglion, right hand pm1 Followup: pm1 - With: Emergency Department - When: As needed - Reason: Worsening of condition Followup: pm1 - With: Private Physician - When: 2 - 3 days - Reason: Recheck today's complaints, Continuance of care, Re-evaluation by your physician Discharge Instructions: - Discharge Summary Sheet pm1 - Ganglion Cyst pm1 - Muscle Strain pm1 Forms: - Medication Reconciliation Form pm1 - Thank You Letter pm1 - Antibiotic Education pm1 - Prescription Opioid Use pm1 Prescriptions: - Diclofenac Sodium 75 mg Oral tablet,delayed release (DR/EC) - take 1 tablet by ORAL route 2 times per day As needed; 30 tablet; Refills: 0, pm1 Product Selection Permitted - Medrol (Shawn) 4 mg Oral Tablets, Dose Pack - take 1 tablet by ORAL route as directed - follow package instructions; 1 pm1 packet; Refills: 0, Product Selection Permitted - Cyclobenzaprine 10 mg Oral Tablet - take 1 tablet by ORAL route every 8 hours As needed; 30 tablet; Refills: 0, pm1 Product Selection Permitted Signatures: Freida Woods RN RN lp1 Lenin Diop NP [employer] pm1 Mis Hogan RN RN tw2
[2022-05-07] MEDS ORDERED: IBUPROFEN 200 MG TAB PO ONE (20:03)
[2022-05-07] MEDS ORDERED: CYCLOBENZAPRINE 10 MG TAB ONE (20:03)
[2022-05-07] MEDS ORDERED: dexAMETHasone 10 MG/ML VIAL ONE (20:03)
[2022-05-07] MEDS ORDERED: IBUPROFEN 400 MG TAB ONE (20:03)
[2022-05-07 20:18] VITALS: BP 157/93; TEMP 98.4; O2SAT 99
== END 2022-05-07 20:12 | disposition home or self-care (01) ==
LOC: ER 18:08
DX: S46.811A Strain of other muscles, fascia and tendons at shoulder and upper arm level, right arm, initial encounter (principal); X58.XXXA Exposure to other specified factors, initial encounter; Y93.9 Activity, unspecified; Y92.9 Unspecified place or not applicable; M67.441 Ganglion, right hand
CPT/HCPCS: 96372; 99283; J1100